=== PATIENT | female | born 1980 | race Two or more races ===

== ENCOUNTER 2022-12-14 14:41 | Outpatient (REF) | payer MEDICAID, OTHER, SELFPAY ==
--- NOTE | ~2022-12-14 | US_ITS ---
EXAMINATION: US SOFT TISSUE HEAD/NECK CLINICAL INFORMATION: Post thyroidectomy. Neck swelling. COMPARISON: None available. TECHNIQUE: Linear transducer grayscale and color Doppler examination of the submental/level 1A region and thyroid bed. FINDINGS: No residual thyroid tissue or nodule is seen in the thyroid bed. No submental/level 1A lymphadenopathy is seen. No solid or cystic soft tissue mass. No fluid collection. US/US soft tiss head and/or neck IMPRESSION: Post thyroidectomy. No residual thyroid tissue or nodule is seen. No submental /level 1 A lymphadenopathy.
== END 2022-12-14 14:42 | disposition home or self-care (01) ==
LOC: HO.US 14:41
PROVIDERS: PCP Nurse Practitioner Family; Visit Provider Nurse Practitioner Family
DX: E04.9 Nontoxic goiter, unspecified (principal)
CPT/HCPCS: 76536

== ENCOUNTER → 2023-02-21 08:52 | Outpatient (BNVA) | payer MEDICAID, OTHER, SELFPAY | PROVIDERS: PCP Nurse Practitioner Family; Visit Provider Physician Assistant ==

== ENCOUNTER 2023-03-25 16:03 | Outpatient (REF) | payer MEDICAID, OTHER, SELFPAY ==
[2023-03-25 18:20] LABS: TSH reflex Free T4 1.04 uIU/mL (0.32-4.0)
== END 2023-03-25 16:04 | disposition home or self-care (01) ==
LOC: HO.HHCL 16:03
PROVIDERS: Visit Provider Nurse Practitioner Family
DX: E03.9 Hypothyroidism, unspecified (principal)
CPT/HCPCS: 36415; 84443; 87086

== ENCOUNTER 2023-03-31 14:48 | Outpatient (REF) | payer MEDICAID, OTHER, SELFPAY ==
--- NOTE | ~2023-03-31 | US_ITS ---
EXAMINATION: US PELVIS CLINICAL INFORMATION: Pelvic pain, unknown last menstrual period. Hysterectomy and oophorectomy. COMPARISON: None available. TECHNIQUE: Ultrasound of the pelvis is performed using both transabdominal and transvaginal transducers along with Doppler. Transvaginal imaging is performed due to inadequate visualization transabdominally. FINDINGS: The uterus is surgically absent. The left ovary is surgically absent. Limited visualization due to bowel gas. Right ovary measures 3.7 x 2.2 x 3.0 cm, volume 12.8 mL. Right ovarian 1.6 x 1.0 x 1.5 cm cyst appears simple, likely physiologic. Left adnexal fluid collection measuring approximately 1.7 x 1.3 x 1.9 cm. Differential considerations for left adnexal fluid collection include hydrosalpinx, pelvic cyst, free fluid or ovarian cyst, although no discrete ovarian tissue is identified and left ovary is surgically removed per patient. US/US pelvic and transvaginal IMPRESSION: Left adnexal fluid collection measuring approximately 1.7 x 1.3 x 1.9 cm. Differential considerations for left adnexal fluid collection fluid include hydrosalpinx, pelvic cyst, free fluid or ovarian cyst, although no discrete ovarian tissue is identified and left ovary is surgically removed per patient. Gynecologic consultation and correlation with clinical exam recommended to determine further management. Unremarkable right ovary. Uterus is surgically absent.
== END 2023-03-31 14:49 | disposition home or self-care (01) ==
LOC: HO.US 14:48
PROVIDERS: PCP Nurse Practitioner Family; Visit Provider Nurse Practitioner Family
DX: R10.2 Pelvic and perineal pain (principal)
CPT/HCPCS: 76830; 76856

== ENCOUNTER 2023-05-25 15:12 | Outpatient (REF) | payer MEDICAID, OTHER, SELFPAY ==
[2023-05-26 16:05] LABS: Creatinine Urine 270.51 mg/dL
[2023-05-26 16:34] LABS: Microalbum/Creatinine Ratio Ur 254.7 ug/mg cr (<30)
== END 2023-05-25 15:13 | disposition home or self-care (01) ==
LOC: HO.HHCLNP 15:12
PROVIDERS: Visit Provider Nurse Practitioner Primary Care
DX: R30.0 Dysuria (principal); R80.9 Proteinuria, unspecified; I10 Essential (primary) hypertension
CPT/HCPCS: 82043; 82570; 87086; 87088; 87186

== ENCOUNTER 2023-05-26 15:06 | Outpatient (REF) | payer MEDICAID, OTHER, SELFPAY | END 2023-05-26 15:07 | disposition home or self-care (01) | LOC: HO.HHCLNP 15:06 | PROVIDERS: Visit Provider Nurse Practitioner Primary Care | DX: Z13.89 Encounter for screening for other disorder (principal) ==

== ENCOUNTER 2023-05-26 15:10 | Outpatient (REF) | payer MEDICAID, OTHER, SELFPAY | END 2023-05-26 15:11 | disposition home or self-care (01) | LOC: HO.HHCLNP 15:10 | PROVIDERS: Visit Provider Nurse Practitioner Primary Care | DX: Z13.89 Encounter for screening for other disorder (principal) ==

== ENCOUNTER 2023-06-09 13:46 | Outpatient (REF) | payer MEDICAID, OTHER, SELFPAY ==
--- NOTE | ~2023-06-09 | US_ITS ---
EXAMINATION: US RETROPERITONEAL LIMITED (RENAL ONLY) CLINICAL INFORMATION: Albuminuria, hematuria. COMPARISON: None available. TECHNIQUE: Real-time imaging of the kidneys. FINDINGS: RIGHT KIDNEY: 12.6 x 5.5 x 6.3 cm (SAG x AP x TRV). The kidney is normal in size, contour, and echogenicity. Renal cortical thickness is normal. No calculi or focal parenchymal lesions. No hydronephrosis. LEFT KIDNEY: 10.8 x 6.5 x 4.8 cm (SAG x AP x TRV). The kidney is normal in size, contour, and echogenicity. Renal cortical thickness is normal. No focal parenchymal lesions or hydronephrosis. At the upper pole, a 4 mm nonobstructing calculus is seen, with twinkle artifact. US/US renal BI IMPRESSION: A 4 mm nonobstructing left renal calculus is seen. No right renal calculus is seen. No hydronephrosis is noted bilaterally.
== END 2023-06-09 13:47 | disposition home or self-care (01) ==
LOC: HO.US 13:46
PROVIDERS: PCP Nurse Practitioner Family; Visit Provider Nurse Practitioner Primary Care
DX: R80.9 Proteinuria, unspecified (principal); R31.9 Hematuria, unspecified
CPT/HCPCS: 76775

== ENCOUNTER 2023-10-18 12:30 | Outpatient (REF) | payer MEDICAID, OTHER, SELFPAY ==
[2023-10-18 13:20] LABS: MANUAL DIFF FLAG NO
[2023-10-18 13:35] LABS: Basophils Percent Auto 0.5 % (0-2); Eosinophils Absolute Auto 0.1 X10*3/uL (0.0-0.4); Eosinophils Percent Auto 1.2 % (0-4); Hemoglobin 12.7 g/dl (12.0-16.0); Imm Gran Abs Auto 0.03 X10*3/uL (0.00-0.03); Imm Gran Pct Auto 0.4 % (0.0-0.4); Lymphocytes Absolute Auto 3.4 X10*3/uL (1.2-4.9); Lymphocytes Percent Auto 40.7 % (20-40); Mean Corpuscular HGB Conc 31.8 g/dl (31.0-35.0); Mean Corpuscular Hemoglobin 26.8 pg (27.0-33.0); Mean Corpuscular Volume 84.6 fL (80.0-98.0); Mean Platelet Volume 10.8 fL (9.4-12.3); Monocytes Absolute Auto 0.6 X10*3/uL (0.1-1.2); Monocytes Percent Auto 6.9 % (2-11); Neutrophils Absolute Auto 4.2 x10*3/uL (2.0-8.3); Neutrophils Percent Auto 50.3 % (45-73); Platelet Count 293 X10*3/uL (160-400); Red Blood Count 4.73 X10*6/uL (4.20-5.50); Red Cell Distribution Width 14.4 % (11.0-16.0); White Blood Count 8.3 X10*3/uL (4.8-10.8)
[2023-10-18 14:04] LABS: Estimated Average Glucose 108 mg/dL; Hemoglobin A1c % 5.4 % (<6.0)
[2023-10-18 14:05] LABS: Creatinine Urine 271.85 mg/dL; Microalbum/Creatinine Ratio Ur 8.8 ug/mg cr (<30)
[2023-10-18 15:59] LABS: Alanine Aminotransferase 22 U/L (0-31); Albumin Level 4.1 g/dL (3.5-5.0); Alkaline Phosphatase 69 U/L (39-117); Anion Gap 14 (12-20); Aspartate Amino Transferase 18 U/L (5-31); Bilirubin Total 0.4 mg/dL (0.0-1.0); Blood Urea Nitrogen 14 mg/dL (9-16); Calcium 9.3 mg/dL (8.4-10.2); Carbon Dioxide 23 mmol/L (22-29); Chloride 106 mmol/L (96-108); Cholesterol 225 mg/dL (<200); Estimated Glomerular Filt Rate > 60; Glucose Random 93 mg/dL (60-115); HDL Cholesterol 59 mg/dL (>40); LDL Cholesterol Calculated 135 mg/dL (<100); Potassium 4.1 mmol/L (3.3-5.1); Sodium 139 mmol/L (135-145); Total Protein 7.2 g/dL (6.5-8.0); Triglycerides 158 mg/dL (<150)
== END 2023-10-18 12:31 | disposition home or self-care (01) ==
LOC: HO.HHCL 12:30
PROVIDERS: Visit Provider Nurse Practitioner Family
DX: I10 Essential (primary) hypertension (principal); E66.2 Morbid (severe) obesity with alveolar hypoventilation
CPT/HCPCS: 36415; 80053; 80061; 82043; 82570; 83036; 85025

== ENCOUNTER 2024-01-10 12:20 | Outpatient (REF) | payer MEDICAID, OTHER, SELFPAY ==
[2024-01-12 21:28] LABS: C. trachomatis RNA TMA NOT DETECTED (NOT DETECTED); Candida glabrata RNA NOT DETECTED (NOT DETECTED); Candida species RNA NOT DETECTED (NOT DETECTED); N. gonorrhoeae RNA TMA NOT DETECTED (NOT DETECTED); Trichomonas vaginalis RNA NOT DETECTED (NOT DETECTED)
== END 2024-01-10 12:21 | disposition home or self-care (01) ==
LOC: HO.HHCLNP 12:20
PROVIDERS: Visit Provider Nurse Practitioner Family
DX: N76.0 Acute vaginitis (principal)
CPT/HCPCS: 36415; 81513; 87481; 87491; 87591; 87661

== ENCOUNTER 2024-04-02 10:42 | Outpatient (REF) | payer MEDICAID, OTHER, SELFPAY ==
[2024-04-02 12:07] LABS: TSH reflex Free T4 1.23 uIU/mL (0.32-4.0)
== END 2024-04-02 10:43 | disposition home or self-care (01) ==
LOC: HO.HHCL 10:42
PROVIDERS: Visit Provider Nurse Practitioner Family
DX: E03.9 Hypothyroidism, unspecified (principal)
CPT/HCPCS: 36415; 84443

== ENCOUNTER 2024-08-06 16:48 | Outpatient (REF) | payer MEDICAID, OTHER, SELFPAY ==
[2024-08-06 17:48] LABS: MANUAL DIFF FLAG NO
[2024-08-06 18:36] LABS: Basophils Percent Auto 0.5 % (0-2); Eosinophils Absolute Auto 0.1 X10*3/uL (0.0-0.4); Eosinophils Percent Auto 1.6 % (0-4); Hematocrit 39.4 % (37.0-47.0); Hemoglobin 12.6 g/dl (12.0-16.0); Imm Gran Abs Auto 0.02 X10*3/uL (0.00-0.03); Imm Gran Pct Auto 0.2 % (0.0-0.4); Lymphocytes Absolute Auto 2.7 X10*3/uL (1.2-4.9); Lymphocytes Percent Auto 30.8 % (20-40); Mean Corpuscular Hemoglobin 27.3 pg (27.0-33.0); Mean Corpuscular Volume 85.3 fL (80.0-98.0); Monocytes Absolute Auto 0.6 X10*3/uL (0.1-1.2); Monocytes Percent Auto 6.7 % (2-11); Neutrophils Absolute Auto 5.3 x10*3/uL (2.0-8.3); Neutrophils Percent Auto 60.2 % (45-73); Platelet Count 264 X10*3/uL (160-400); Red Blood Count 4.62 X10*6/uL (4.20-5.50); Red Cell Distribution Width 14.9 % (11.0-16.0); White Blood Count 8.8 X10*3/uL (4.8-10.8)
[2024-08-06 19:09] LABS: Alanine Aminotransferase 27 U/L (0-31); Albumin Level 3.8 g/dL (3.5-5.0); Alkaline Phosphatase 64 U/L (39-117); Anion Gap 12 (12-20); Aspartate Amino Transferase 19 U/L (5-31); Bilirubin Total 0.2 mg/dL (0.0-1.0); Blood Urea Nitrogen 16 mg/dL (9-16); C Reactive Protein 0.63 mg/dL (< or = 0.50); Calcium 8.9 mg/dL (8.4-10.2); Carbon Dioxide 24 mmol/L (22-29); Chloride 106 mmol/L (96-108); Estimated Glomerular Filt Rate > 60; Glucose Random 88 mg/dL (60-115); Potassium 3.6 mmol/L (3.3-5.1); Sodium 138 mmol/L (135-145); Total Protein 6.6 g/dL (6.5-8.0)
[2024-08-06 19:18] LABS: TSH reflex Free T4 0.91 uIU/mL (0.32-4.0)
[2024-08-06 19:24] LABS: Erythrocyte Sedimentation Rate 9 MM/HR (0-20)
[2024-08-07 07:17] LABS: Estimated Average Glucose 117 mg/dL; Hemoglobin A1c % 5.7 % (<6.0)
== END 2024-08-06 16:49 | disposition home or self-care (01) ==
LOC: HO.HHCL 16:48
PROVIDERS: Visit Provider Nurse Practitioner Family
DX: E66.01 Morbid (severe) obesity due to excess calories (principal); M25.50 Pain in unspecified joint
CPT/HCPCS: 36415; 80053; 83036; 84443; 85025; 85652; 86140

== ENCOUNTER → 2024-09-17 16:30 | Outpatient (BNV) | payer MEDICAID, SELFPAY | PROVIDERS: PCP Nurse Practitioner Family; Visit Provider Internal Medicine | DX: Z12.31 Encounter for screening mammogram for malignant neoplasm of breast (principal) | CPT/HCPCS: 77063; 77067 ==

== ENCOUNTER 2024-09-17 16:35 | Outpatient (REF) | payer MEDICAID, OTHER, SELFPAY ==
--- NOTE | ~2024-09-17 | MM_ITS ---
EXAMINATION: MM SCREENING DIGITAL BREAST TOMOSYNTHESIS, BILATERAL CLINICAL INFORMATION: Screening. Asymptomatic. COMPARISON: Mammography: Baseline. TECHNIQUE: Digital breast mammography with tomosynthesis is performed in both the craniocaudal and mediolateral oblique views along with computer-aided detection (CAD). FINDINGS: The breasts are heterogeneously dense, which may obscure small masses (ACR BI-RADS breast composition Category c). There are no significant masses, abnormal calcifications, or other abnormalities. MM/MM tomosynthesis screening BI IMPRESSION: No mammographic evidence of malignancy. ASSESSMENT: BI-RADS BI-RADS 1 - Negative RECOMMENDATION: Routine annual mammography screening. 1 year F/U This examination should not preclude the clinical evaluation of a suspicious palpable abnormality. This patient's information was entered into a reminder system with a target due date for their next mammogram. Electronically signed by: Andreia Paz DO 09/23/2024 06:05 PM EDGARDO
== END 2024-09-17 16:36 | disposition home or self-care (01) ==
LOC: HO.MAMMO 16:35
PROVIDERS: PCP Nurse Practitioner Family; Visit Provider Nurse Practitioner Family
DX: Z12.31 Encounter for screening mammogram for malignant neoplasm of breast (principal)
CPT/HCPCS: 77063; 77067

== ENCOUNTER 2024-10-23 15:14 | Outpatient (REF) | payer MEDICAID, OTHER, SELFPAY ==
--- OUTSIDE RECORDS SUMMARY | 2024-10-23 16:01 | XMS_ITS | Encounter Summary ---
Author Organization [employer] Address [address] [facility] [address] [place] [address] Care Team Providers Care Gum Rolling Machine Operator Name Role Phone Maya Whiteside NP Primary Care Provider [phone] Reason for Visit * Reason Onset Date Comments Nurse Triage 08/29/2024 Encounter Details Date Type Department Care Team ([facility] st Contact Info) Description 08/29/2024 Telephone [facility] MEDICINE [address] [place], [place] [phone] Maya Whiteside NP [address] [place] [address] Nurse Triage Social History Tobacco Use Types Packs/Day Years Used Date Smoking Tobacco: Never Passive Smoke Exposure: Never Smokeless Tobacco: Never Alcohol Use Standard Drinks/Week Comments Not Currently 0 (1 standard drink = 0.6 oz pur e alcohol) socially Depression Answer Date Recorded Patient Health Questionnaire-9 Score 1 08/06/2024 Patient Health Questionnaire-9 Score 1 08/06/2024 Last PHQ-9: Questionnaire Data Not on file 1 10/06/2023 Housing Stability Answer Date Recorded What is your housing situation today? I have edgar martinez 03/07/[address] you li ve. Do you have problems with any of the following? None of the above 03/07/2024 Food Insecurity Answer Date Recorded Within the past 12 months, y ou worried that your food would run out before you got money to buy more: Never True 03/07/2024 Within the past 12 months,th e food you bought just didn't last and you didn't have enough money to get more: Never True Transportation Answer Date Recorded In the past 12 months, has l ack of transportation kept you from medical appts, meetings, work or from getting things needed for daily living? No 03/07/2024 Utilities Answer Date Recorded In the past 12 months, has t he electric, gas, oil or water company threatened to shut off services in your home? No 03/07/2024 Depression Answer Date Recorded Patient Health Questionnaire-2 Score 0 08/06/2024 Internet Access Answer Date Recorded Internet Access Q1 Yes 05/11/2024 Internet Access Q2 Not on file 05/11/2024 Comments Unknown Sex and Gender Information Value Date Recorded Sex Assigned at Female 07/12/2022 10:40 AM EDT Legal Sex Female 10:40 AM EDT Gender Identity Female 07/12/2022 10:40 AM EDT Sexual Orientation Choose not to disclose 2021 10:40 AM EDT documented as of this encounter Miscellaneous Notes * Telephone Encounter - Adelia Morocho RN - 08/29/2024 2:18 PM EST Triage call with [facility] [place] [id number]. Pt reports increased anxiety since difficulty with son occurred several months ago. Pt reports that situation is resolved but, since that time Pt has had a degree of anxiety. Pt reports feeling nervous like I drank an energy drink . Pt is menopausal and is using estrace vag cream as prescribed. Pt had been prescribed hydroxyzine 25mg but, has never used it. Pt reports not wanting to rely on medication. Pt reports no increased stress or othertrigger for this anxiety. Pt is able to go about daily activities. Pt reports sometimes along with nervousness Pt feels an increased heart rate. ASK apt with PCP 09/10/24 @ 330pm scheduled . Pt agrees with disposition. Home care is reviewed. Advised when feels anxious to go for a walk, read a book,listen to music but, try to do an activity which Pt likes to change the thoughts. Pt agrees to try this. Insurance is verified as active prior to booking. Protocol Used: Anxiety and Panic Attack (Adult) Protocol-Based Disposition: See in Office or Video Visit within 2 Weeks Video visit not offered Positive Triage Question: * Symptoms of anxiety or panic attack and is a chronic symptom (recurrent or ongoing AND present > 4 weeks) * All higher-acuity triage questions were negative Care Advice Discussed: * Note to Triager - Anxiety Symptoms * Reassurance and Education - Anxiety * Anxiety - Healthy Lifestyle Tips * Avoid Caffeine * Stress Reduction * Reasons To Call Back - Anxiety or panic attacks continue - You feel like harming yourself - You become worse * Telephone Encounter - Cruzito Carranza - 08/29/2024 12:48 PM EST Symptom: Anxiety or Panic Attack Outcome: Schedule an urgent appointment (within 4 hours) or talk to a nurse or provider soon Reason: Anxiety keeps from normal daily activities (such as school or work) Hungarian Speaker (Accepted General Production Manager) documented in this encounter Plan of Treatment Upcoming Encounters Date Type Department Care Team (Late st Contact Info) Description 11/19/2024 3:45 PM EDT Office Visit [facility] MED[facility]INE [address] [place] [address] Maya Whiteside NP [address] [place] [address] documented as of this encounter Visit Diagnoses Not on filedocumented in this encounter Additional Health Concerns Assessment Noted Time PHQ-9 Depression Total Score: 1 08/06/20 24 3:56 PM EST documented as of this encounter Care Teams Gum Rolling Machine Operator Relationship Specialty Start Date End Date Maya Whiteside NP [address] [place] [address] PCP - General Family Medicine 05/11/24 documented as of this encounter
--- OUTSIDE RECORDS SUMMARY | 2024-10-23 16:01 | XMS_ITS | Encounter Summary ---
Author Organization [employer] [facility] Address [address] [facility] 7t [place] [address] Care Team Providers Care Grading Supervisor Name Role Phone Marianna HeP Primary Care Provider [phone] Maya Whiteside NP Primary Care Provider Reason for Visit * Reason Comments Med Refill Encounter Details Date Type Department Care Team ([facility] st Contact Info) Description 03/08/2023 Refill [facility] MEDICINE [address] [place] [address] Marianna He FNP [address] [place] [address] Social History Tobacco Use Types Packs/Day Years Used Date Smoking Tobacco: Never Passive Smoke Exposure: Never Smokeless Tobacco: Never Alcohol Use Standard Drinks/Week Comments Not Currently 0 (1 standard drink = 0.6 oz pur e alcohol) Depression Answer Date Recorded Patient Health Questionnaire-9 Score 8 12/01/2022 Depression Answer Date Recorded Patient Health Questionnaire-2 Score 2 12/01/2022 Comments Unknown Sex and Gender Information Value Date Recorded Sex Assigned at Female 07/12/2022 10:40 AM EDT Legal Sex Female 10:40 AM EDT Gender Identity Female 07/12/2022 10:40 AM EDT Sexual Orientation Choose not to disclose 2021 10:40 AM EDT COVID-19 Exposure Response Date Recorded In the last 10 days, have yo u been in contact with someone who was confirmed or suspected to have Coronavirus/COVID-19? No / Unsure 02/16/2023 3:30 PM EDT documented as of this encounter Plan of Treatment Upcoming Encounters Date Type Department Care Team (Late st Contact Info) Description 11/19/2024 3:45 PM EDT Office Visit [facility] MEDICINE [address] [place] [address] Maya Whiteside NP [address] [place] [address] documented as of this encounter Visit Diagnoses Not on filedocumented in this encounter Additional Health Concerns Assessment Noted Time PHQ-9 Depression Total Score: 8 12/02/19 23 2:51 PM EDT documented as of this encounter Care Teams Grading Supervisor Relationship Specialty Start Date End Date Marianna He FNP [address] [place] [address] PCP - General Family Medicine 12/01/22 05/10/24 Maya Whiteside NP [address] [place] [address] PCP - General Family Medicine 05/11/24 documented as of this encounter
--- OUTSIDE RECORDS SUMMARY | 2024-10-23 16:01 | XMS_ITS | Encounter Summary ---
Author Organization [employer] Address [address] [facility] 7[address] [place] [address] Care Team Providers Care Automotive Buyer Name Role Phone Marianna HeP Primary Care Provider [phone] Maya Whiteside NP Primary Care Provider Reason for Visit * Reason Onset Date Comments Medication Question 10/21/2023 Encounter Details Date Type Department Care Team (Late st Contact Info) Description 10/21/2023 Telephone [facility] MEDICINE [address] [place], [place] [phone] Marianna He FNP [address] [place], [place] [phone] Medication Question Social History Tobacco Use Types Packs/Day Years [...] encounter Miscellaneous Notes * Telephone Encounter - Della Stearns RN - 10/21/2023 2:38 PM EST T/C to pt. Through [employer] interpreters to inform that if she feels light headed or dizzy to reduceose, also advised to take BP at home and keeping next apt. Pt. Verbally agreed and understood. * Telephone Encounter - Della Stearns RN - 10/21/2023 11:47 AM EST T/C to pt. For below message, pt. States she recently started new increased dose of Lisinopril. Since she start new dose she felt dizziness and for that reason she stopped Lisinopril 30 mg and go back on Lisinopril 20 mg as discussed by provider. Pt. Does not has any symptoms right now, but feels tired right now. Last dose of Lisinopril 30 mg was taken on Tuesday. Pt. Was advised to go to nearest ED in case of any symptoms including CP, SOB or breathing problem.Pt. Advised that message will be sent to provider for review. Please review and advise. * Telephone Encounter - Annalise Nnamdi - 10/21/2023 10:49 AM EST Tc from pt requesting to speak to a nurse in regards to medication lisinopril 30 mg, states medication was increased however has some further questions and concerns also denied any currently symptoms. Please contact at [phone] Algerian documented in this encounter Plan of Treatment Upcoming Encounters Date Type Department Care Team (Late st Contact Info) Description 11/19/2024 3:45 PM EDT Office Visit [facility] MEDICINE [address] [place] [address] Maya Whiteside NP [address] [place] [address] documented as of this encounter Visit Diagnoses Not on filedocumented in this encounter Additional Health Concerns Assessment Noted Time PHQ-9 Depression Total Score: 8 12/02/19 23 2:51 PM EDT documented as of this encounter Care Teams Automotive Buyer Relationship Specialty Start Date End Date Marianna He FNP [address] [place] [address] PCP - General Family Medicine 12/01/22 05/10/24 Maya Whiteside NP [address] [place] [address] PCP - General Family Medicine 05/11/24 documented as of this encounter
--- OUTSIDE RECORDS SUMMARY | 2024-10-23 16:01 | XMS_ITS | Encounter Summary ---
Author Organization [employer] [facility] Address [address] [place] [address] 7t [place] [address] Care Team Providers Care Plaster Tender Name Role Phone Marianna He Primary Care Provider [phone] Maya Whiteside NP Primary Care Provider [phone] Encounter Details Date Type Department Care Team (Late st Contact Info) Description 04/11/2023 Orders Only [facility] MEDICINE [address] [place] [address] Marianna He FNP [address] [place] [address] Pelvic pain (Primary Dx) Social History Tobacco Use Types Packs/Day Years [...] AM EDT documented as of this encounter Plan of Treatment Upcoming Encounters Date Type Department Care Team (Late st Contact Info) Description 11/19/2024 3:45 PM EDT Office Visit [facility] MED[facility]INE [address] [place] [address] Maya Whiteside NP [address] [place] [address] documented as of this encounter Visit Diagnoses Diagnosis Pelvic pain- Primary documented in this encounter Additional Health Concerns Assessment Noted Time PHQ-9 Depression Total Score: 8 12/02/19 23 2:51 PM EDT documented as of this encounter Care Teams Plaster Tender Relationship Specialty Start Date End Date Marianna He FNP [address] [place] [address] PCP - General Family Medicine 12/01/22 05/10/24 Maya Whiteside NP [address] [place] [address] PCP - General Family Medicine 05/11/24 documented as of this encounter
--- OUTSIDE RECORDS SUMMARY | 2024-10-23 16:01 | XMS_ITS | Encounter Summary ---
Author Organization [employer] Address [address] [facility] 7t [place] [address] Care Team Providers Care Kinesiologist Name Role Phone Marianna HeP Primary Care Provider [phone] Maya Whiteside NP Primary Care Provider [phone] Reason for Visit * Reason Onset Date Comments Med Refill 11/24/2023 Encounter Details Date Type Department Care Team (Late st Contact Info) Description 11/24/2023 Telephone [facility] MEDICINE [address] [place], [place] [phone] Marianna He FNP [address] [place], [place] [phone] Med Refill Social History Tobacco Use Types Packs/Day Years Used Date Smoking Tobacco: Never Passive Smoke Exposure: Never Smokeless Tobacco: Never Alcohol Use Standard Drinks/Week Comments Not Currently 0 (1 standard drink = 0.6 oz pur e alcohol) Depression Answer Date Recorded Patient Health Questionnaire-9 Score 8 12/01/2022 Housing Stability Answer Date Recorded What is your housing situation today? I have edgar martinez 06/28/[address] you li ve. Do you have problems with any of the following? None of the above 06/28/2023 Food Insecurity Answer Date Recorded Within the past 12 months, y ou worried that your food would run out before you got money to buy more: Never True 06/28/2023 Within the past 12 months,th e food you bought just didn't last and you didn't have enough money to get more: Never True Transportation Answer Date Recorded In the past 12 months, has l ack of transportation kept you from medical appts, meetings, work or from getting things needed for daily living? No 06/28/2023 Utilities Answer Date Recorded In the past 12 months, has t he electric, gas, oil or water company threatened to shut off services in your home? No 06/28/2023 Depression Answer Date Recorded Patient Health Questionnaire-2 Score 2 12/01/2022 Comments Unknown Sex and Gender Information Value Date Recorded Sex Assigned at Female 07/12/2022 10:40 AM EDT Legal Sex Female 10:40 AM EDT Gender Identity Female 07/12/2022 10:40 AM EDT Sexual Orientation Choose not to disclose 2021 10:40 AM EDT documented as of this encounter Miscellaneous Notes * Telephone Encounter - Tonia Chacon LPN - 11/24/2023 1:08 PM EDT Lisinopril was sent to [facility] on 10/18/23 #90 with 1 refill other medication pended to PCP. * Telephone Encounter - Cruzito Carranza - 11/24/2023 12:35 PM EDT TC from pt requesting medication refill. Medications needing refill: levothyroxine (Synthroid, Levoxyl) 175 MCG tablet and lisinopril (Prinivil) 20 MG tablet To be sent to: [facility] documented in this encounter Plan of Treatment Upcoming Encounters Date Type Department Care Team (Late st Contact Info) Description 11/19/2024 3:45 PM EDT Office Visit [facility] MEDICINE [address] [place] [address] Maya Whiteside NP [address] [place] [address] documented as of this encounter Visit Diagnoses Not on filedocumented in this encounter Additional Health Concerns Assessment Noted Time PHQ-9 Depression Total Score: 8 12/02/19 23 2:51 PM EDT documented as of this encounter Care Teams Kinesiologist Relationship Specialty Start Date End Date Marianna He FNP [address] [place] [address] PCP - General Family Medicine 12/01/22 05/10/24 Maya Whiteside NP [address] [place] [address] PCP - General Family Medicine 05/11/24 documented as of this encounter
--- OUTSIDE RECORDS SUMMARY | 2024-10-23 16:01 | XMS_ITS | Encounter Summary ---
Author Organization [facility] [employer] [facility] [employer] Address [address] [facility] 7t [place] [address] Care Team Providers Care College Service Officer Name Role Phone Marianna HeP Primary Care Provider [phone] Maya Whiteside NP Primary Care Provider [phone] Reason for Visit * Reason Onset Date Comments Appointment Request 03/09/2023 Encounter Details Date Type Department Care Team ([facility] st Contact Info) Description 03/09/2023 Telephone [facility] MEDICINE [address] [place], [place] [phone] Marianna He FNP [address] [place], [place] [phone] Appointment Request Social History Tobacco Use Types Packs/Day Years [...] PM EDT documented as of this encounter Miscellaneous Notes * Telephone Encounter - Della Stearns RN - 03/10/2023 10:15 AM EDT T/C to [phone] through [employer] id - [id number] for below message. Pt. Is looking for follow up apt. To discuss aboutbariatric surgery. Pt. Schedule follow up apt. With PCP on 03/25/2023. Pt. Verbally agreed and understood. * Telephone Encounter - Annalise Coto - 03/09/2023 12:03 PM EDT Tc from pt requesting to have a office visit with PCP to bariatric surgery , states has some further questions and concerns. Pt is currently going to [facility] weight management. Please contact at [phone] Uzbek documented in this encounter Plan of Treatment Upcoming Encounters Date Type Department Care Team (Late st Contact Info) Description 11/19/2024 3:45 PM EDT Office Visit [facility] MEDICINE [address] [place] [address] Maya Whiteside NP [address] [place] [address] documented as of this encounter Visit Diagnoses Not on filedocumented in this encounter Additional Health Concerns Assessment Noted Time PHQ-9 Depression Total Score: 8 12/02/19 23 2:51 PM EDT documented as of this encounter Care Teams College Service Officer Relationship Specialty Start Date End Date Marianna He FNP [address] [place] [address] PCP - General Family Medicine 12/01/22 05/10/24 Maya Whiteside NP [address] [place] [address] PCP - General Family Medicine 05/11/24 documented as of this encounter
--- OUTSIDE RECORDS SUMMARY | 2024-10-23 16:01 | XMS_ITS | Encounter Summary ---
Author Organization [employer] [facility] Address [address] [facility] 7t [place] [address] Care Team Providers Care Load Dispatcher Local Name Role Phone YingMarianna BROOCH MAKER NOVELTY Primary Care Provider [phone] Maya Whiteside NP Primary Care Provider [phone] Encounter Details Date Type Department Care Team (Late st Contact Info) Description 02/15/2023 Orders Only [facility] MEDICINE [address] [place], [place] [phone] Estephania Baxter MD [address] [place], [place] [phone] Acquired hypothyroidism (Primary Dx) Social History Tobacco Use Types [...] Description 11/19/2024 3:45 PM EDT Office Visit [facility] MEDICINE [address] [place] [address] Maya Whiteside NP [address] [place] [address] documented as of this encounter Visit Diagnoses Diagnosis Acquired hypothyroidism- Primary Unspecified hypothyroidism documented in this encounter Additional Health Concerns Assessment Noted Time PHQ-9 Depression Total Score: 8 12/02/19 23 2:51 PM EDT documented as of this encounter Care Teams Load Dispatcher Local Relationship Specialty Start Date End Date Marianna He FNP [address] [place] [address] PCP - General Family Medicine 12/01/22 05/10/24 Maya Whiteside NP [address] [place] [address] PCP - General Family Medicine 05/11/24 documented as of this encounter
--- OUTSIDE RECORDS SUMMARY | 2024-10-23 16:01 | XMS_ITS | Encounter Summary ---
Author Organization [facility] Address [address] [facility] 7t [place] [address] Care Team Providers Care Stainless Steel Finisher Name Role Phone Ying Marianna FNP Primary Care Provider [phone] Maya Whiteside NP Primary Care Provider [phone] Encounter Details Date Type Department Care Team (Late st Contact Info) Description 10/26/2022 Orders Only [facility] [address] [place] [address] [phone] Lynn Gaxiola FNP Acquired hypothyroidism Social History Tobacco Use Types Packs/Day Years Used Date Smoking Tobacco: Never Passive Smoke Exposure: Never Smokeless Tobacco: Never Comments Unknown Sex and Gender Information Value [...] suspected to have Coronavirus/COVID-19? No / Unsure 10/20/2022 5:48 PM EST documented as of this encounter Plan of Treatment Upcoming Encounters Date Type Department Care Team (Late st Contact Info) Description 11/19/2024 3:45 PM EDT Office Visit [facility] [address] [place] [address] [phone] Maya Whiteside NP [address] [place], [place] [phone] documented as of this encounter Procedures Procedure Name Priority Date/Time Associated Diagnosis Comments TSH W/REFLEX TO FT4 Routine 11/29/2022 8:52 AM EDT Acquired hypothyroidism documented in this encounter Results * TSH W/Reflex to FT4 (11/29/2022 8:52 AM EDT) TSH w/Reflex to FT4 3.96 mIU/L [employer] [facility] Comment: ?Reference Range ?> or = 20 Years ??0.40-4.50 ? Ranges ?First trimester ?0.26-2.66 ?Second trimester ?? 0.55-2.73 ?Third trimester ?0.43-2.91 11/29/2022 8:52 AM EDT 11/29/2022 8:52 AM EDT [facility] - 11/29/2022 8:54 PM EDT FASTING:UNKNOWN FASTING: UNKNOWN us [facility] BLOOD ORDERABLES Final Res ult [facility] [address], [place] [address] [facility] [address] [place] [address] documented in this encounter Visit Diagnoses Diagnosis Acquired hypothyroidism Unspecified hypothyroidism documented in this encounter Care Teams Stainless Steel Finisher Relationship Specialty Start Date End Date Marianna He FNP [address] [place] [address] PCP - General Family Medicine 12/01/22 05/10/24 Maya Whiteside NP [address] [place] [address] PCP - General Family Medicine 05/11/24 documented as of this encounter
--- OUTSIDE RECORDS SUMMARY | 2024-10-23 16:01 | XMS_ITS | Encounter Summary ---
Author Organization [employer] Address [address] [facility] 7t [place] [address] Care Team Providers Care Neon Pumper Name Role Phone Stevo Maya BEATRIZ Primary Care Provider [phone] Encounter Details Date Type Department Care Team (Latest Contact Info) Description 10/10/2024 Travel Social History Tobacco Use Types Packs/Day Years [...] Description 11/19/2024 3:45 PM EDT Office Visit [facility] [address] [place] [address] Maya Whiteside NP [address] [place] [address] documented as of this encounter Visit Diagnoses Not on filedocumented in this encounter Additional Health Concerns Assessment Noted Time PHQ-9 Depression Total Score: 1 08/06/20 24 3:56 PM EST documented as of this encounter Care Teams Neon Pumper Relationship Specialty Start Date End Date Maya Whiteside NP [address] [place] [address] PCP - General Family Medicine 05/11/24 documented as of this encounter
--- OUTSIDE RECORDS SUMMARY | 2024-10-23 16:01 | XMS_ITS | Encounter Summary ---
Author Organization [employer] [facility] Address [address] [facility] 7t [place] [address] Care Team Providers Care Transmission System Operator Name Role Phone Marianna HeP Primary Care Provider [phone] Maya Whiteside NP Primary Care Provider [phone] Encounter Details Date Type Department Care Team (Late st Contact Info) Description 12/24/[address] [facility] [address] [place], [place] [phone] Marianna He FNP [address] [place] [address] Social History Tobacco Use Types Packs/Day Years [...] suspected to have Coronavirus/COVID-19? No / Unsure 12/20/2022 10:48 AM EDT documented as of this encounter Plan of Treatment Upcoming Encounters Date Type Department Care Team (Late st Contact Info) Description 11/19/2024 3:45 PM EDT Office Visit [facility] [address] [place] [address] Maya Whiteside NP [address] [place] [address] documented as of this encounter Visit Diagnoses Not on filedocumented in this encounter Additional Health Concerns Assessment Noted Time PHQ-9 Depression Total Score: 8 12/02/19 23 2:51 PM EDT documented as of this encounter Care Teams Transmission System Operator Relationship Specialty Start Date End Date Marianna He FNP [address] [place] [address] PCP - General Family Medicine 12/01/22 05/10/24 Maya Whiteside NP [address] [place] [address] PCP - General Family Medicine 05/11/24 documented as of this encounter
--- OUTSIDE RECORDS SUMMARY | 2024-10-23 16:01 | XMS_ITS | Encounter Summary ---
Author Organization [employer] Address [address] [facility] [address] [place] [address] Care Team Providers Care Cleaning Custodian Name Role Phone Marianna HeP Primary Care Provider [phone] Maya Whiteside NP Primary Care Provider [phone] Reason for Visit * Reason Onset Date Comments Nurse Triage 05/25/2023 Encounter Details Date Type Department Care Team (Late st Contact Info) Description 05/25/2023 Telephone [facility] [address] [place], [place] [phone] Marianna He FNP [address] [place], [place] [phone] Nurse Triage Social History Tobacco Use Types [...] Telephone Encounter - Adelia Morocho RN - 05/25/2023 11:45 AM EDT Triage call with [employer] ID [id number] Pt reports pelvic pain which has become more constant. Pt denies vag discharge reports a dryness .Pt has had hysterectomy in past with remaining ovaries. Pt reports cysts on left ovary. Neg for fever. Pt reports burning/pain with urination and frequency. Possible UTI present. Advised Pt to come to [facility] to be seen and Pt agrees with disposition . Protocol Used: Pelvic Pain - Female (Adult) Protocol-Based Disposition: See in Office or Video Visit Today or Tomorrow Positive Triage Question: * Patient wants to be seen * All higher-acuity triage questions were negative Care Advice Discussed: * Reassurance and Education - Mild to Moderate Pain Lasting Less Than 2 Hours * Rest * Pass a Stool * Use Heat * Pain Medicines * Pain Medicines - Extra Notes and Warnings * Expected Course * Reasons To Call Back - Severe pain lasts over 1 hour - Constant pain lasts over 2 hours - Intermittent pain (e.g., comes and goes, cramps) lasts over 48 hours - You become worse * Telephone Encounter - Annalise Coto - 05/25/2023 10:44 AM EDT Symptom: Abdominal Pain - Female - Not Outcome: Talk to a nurse or provider within 15 minutes Reason: Severe pain now, Pelvic pain, vaginal symptoms. The caller accepted this outcome Please contact at [phone] Ukrainian documented in this encounter Plan of Treatment Upcoming Encounters Date Type Department Care Team (Late st Contact Info) Description 11/19/2024 3:45 PM EDT Office Visit [facility] [address] [place] [address] Maya Whiteside NP [address] [place] [address] documented as of this encounter Visit Diagnoses Not on filedocumented in this encounter Additional Health Concerns Assessment Noted Time PHQ-9 Depression Total Score: 8 12/02/19 23 2:51 PM EDT documented as of this encounter Care Teams Cleaning Custodian Relationship Specialty Start Date End Date Marianna He FNP [address] [place] [address] PCP - General Family Medicine 12/01/22 05/10/24 Maya Whiteside NP [address] [place] [address] PCP - General Family Medicine 05/11/24 documented as of this encounter
--- OUTSIDE RECORDS SUMMARY | 2024-10-23 16:01 | XMS_ITS | Encounter Summary ---
Author Organization [employer] Address [address] [facility] [address] [place] [address] Care Team Providers Care Sales Technician Home Theater Name Role Phone Maya Whiteside NP Primary Care Provider [phone] Reason for Visit * Reason Comments Med Refill Encounter Details Date Type Department Care Team (Late st Contact Info) Description 10/14/2024 Refill [facility] [address] [place], [place] [phone] Marianna He FNP [address] [place] [address] Anxiety Social History Tobacco Use Types Packs/Day Years [...] Description 11/19/2024 3:45 PM EDT Office Visit [facility] [address] [place] [address] Maya Whiteside NP [address] [place] [address] documented as of this encounter Visit Diagnoses Diagnosis Anxiety Anxiety state, unspecified documented in this encounter Additional Health Concerns Assessment Noted Time PHQ-9 Depression Total Score: 1 08/06/20 24 3:56 PM EST documented as of this encounter Care Teams Sales Technician Home Theater Relationship Specialty Start Date End Date Maya Whiteside NP [address] [place] [address] PCP - General Family Medicine 05/11/24 documented as of this encounter
--- OUTSIDE RECORDS SUMMARY | 2024-10-23 16:01 | XMS_ITS | Encounter Summary ---
Author Organization [employer] Address [address] [facility] 7t [place] [address] Care Team Providers Care Clinical Nursing Coordinator Name Role Phone Stevo Maya BEATRIZ Primary Care Provider [phone] Encounter Details Date Type Department Care Team (Latest Contact Info) Description 10/23/2024 Travel Social History Tobacco Use Types Packs/Day [...] 3:45 PM EDT Office Visit [facility] [address] [place] [address] Maya Whiteside NP [address] [place] [address] documented as of this encounter Visit Diagnoses Not on filedocumented in this encounter Additional Health Concerns Assessment Noted Time PHQ-9 Depression Total Score: 1 08/06/20 24 3:56 PM EST documented as of this encounter Care Teams Clinical Nursing Coordinator Relationship Specialty Start Date End Date Maya Whiteside NP [address] [place] [address] PCP - General Family Medicine 05/11/24 documented as of this encounter
--- OUTSIDE RECORDS SUMMARY | 2024-10-23 16:01 | XMS_ITS | Clinical Summary ---
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 1 kit 12/02/19 23 Active Blood Pressure Monitoring (Omron 3 Series BP Monitor) device USE TO CHECK BLOOD PRESSURE TWICE DAILY DIRECTED 12/02/19 23 Active hydrOXYzine pamoate (Vistaril) 25 MG capsule Take 1 capsule (25 mg) by mouth if needed at bedtime for itching or anxiety for up to 10 days. 30 capsule 05/17/20 23 Active estradiol (Estrace) 0.1 MG/GM vaginal cream INSERT 1/2 GRAM VAGINALLY EVERY MORNING DIRECTED 42.5 g 07/05/20 23 Active lisinopril (Prinivil) 20 MG tablet Take 1 tablet (20 mg) by mouth in the morning. 90 tablet 3 12/05/19 24 025 Active D3 Super Strength 50 MCG (1999 UT) capsule TAKE 1 CAPSULE BY MOUTH EVERY MORNING 90 capsule 2 01/09/20 24 Active hydrocortisone 2.5 % cream Apply pea sized amount to skin bid for 1 week 15 g 01/10/20 24 Active omega-3 acid ethyl esters (Lovaza) 1 g capsule Take 1 capsule (1 g) by mouth in the morning. 90 capsule 1 06/09/20 24 Active levothyroxine (Synthroid, Levoxyl) 175 MCG tabletIndications :Acquired hypothyroidism Take 1 tablet (175 mcg) by mouth before breakfast. 90 tablet 1 06/09/20 24 Active fluticasone (Flonase) 50 MCG/ACT nasal spray INSTILL 2 SPRAYS IN EACH NOSTRIL ONCE DAILY 48 g 09/21/19 25 Active omeprazole (PriLOSEC) [address] capsule TAKE 1 CAPSULE BY MOUTH TWICE DAILY IN THE MORNING AND IN THE EVENING BEFORE MEALS. DO NOT BREAK, CRUSH, DISSOLVE OR CHEW. 180 capsule 09/21/19 25 Active escitalopram (Lexapro) 10 MG tabletIndications :Anxiety TAKE 1 TABLET BY MOUTH EVERY DAY 30 tablet 2 10/15/19 25 Active escitalopram (Lexapro) 10 MG tabletIndications :Anxiety Take 1 tablet (10 mg) by mouth Once per day. 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 10/18/2023 Encounter for health-related screening 4 Hypersomnia 10/18/2023 Assessment & Plan (09/01/2024 2:56 PM EST): Suspect sleep apnea, referral to sleep medicine Assessment & Plan (10/18/2023 2:21 PM EST): Bed partners witnesses possible apneac spells Referral to sleep medicine Palpitations 02/11/2023 Assessment & Plan (02/11/2023 1:49 PM EDT): I will repeat her blood work including CBC and TSH (last time uncontrolled) Primary hypertension 02/11/2023 Assessment & Plan (10/18/2023 2:21 PM EST): Recent ua with microlabuminunria repeat today Reviewed options of titrating up medication slightly or continuing home monitoring Pt prefers to titrate lisinopril to 30 mg Aware to return to 20 mg if develops s/s of hypotension Labs ordered Follow up in 2-4 weeks to review lab results and dosing adjustment Assessment & Plan (02/11/2023 1:51 PM EDT): I discontinue amlodipine and put her on lisinopril 10mg daily Low Na diet Weight reduction was advise Log BP and f/u with PCP If BP >170/100 seek medical attention NARCISA if dizziness, nausea, chest pain, weakness, numbness, etc... seek medical attention NARCISA Elevated BP without diagnosis of hypertension Menopausal vaginal dryness 12/28/2022 Acquired hypothyroidism 10/20/2022 Assessment & Plan (10/18/2023 2:20 PM EST): Pt reports weight gain disproportionate to calories, denies additional endocrine symptoms (temperature intolerance) tsh ordered Fatigue 10/20/2022 Encounters Date Type Department Care Team Description 10/23/2024 Travel 10/14/2024 Refill [facility] [address] [place] [address] Marianna He FNP Anxiety 10/10/2024 Travel 09/21/2024 Refill [facility] [address] [place] [address] Marianna He FNP 09/18/2024 Telephone [facility] [address] [place] [address] Tami Yanes MA Recall 09/10/2024 Telephone [facility] [address] [place] [address] Maya Whiteside NP No Show 09/07/2024 Telephone [facility] [address] [place] [address] Charissa Oneil MA Chart Prep 08/29/2024 Telephone [facility] [address] [place] [address] Maya Whiteside NP Nurse Triage 08/23/2024 Telephone [facility] [address] [facility] [place] [address] Maya Whiteside NP Results 08/06/2024 3:15 PM EST Office Visit [facility] [address] [facility] [place] [address] Maya Whiteside NP Morbid obesity (CMS/HCC) (Primary Dx); Breast screening; Snoring; Multiple joint pain; Right foot pain; Encounter for immunization; Hypersomnia from Last 3 Months Immunizations Name Administration Dates Next Due Influenza, seasonal, injectable, preservative fr ee 08/06/2024 Moderna Covid-19 Vaccine 12+ 03/17/2021,02/17/20 21 Family History Medical History Relation Name Comments Hypertension Father Hypertension Mother Relation Name Status Comments Father Mother Social History Tobacco Use Types Packs/Day Years Used Date Smoking Tobacco: Never Passive Smoke Exposure: Never Smokeless Tobacco: Never Tobacco Cessation:Counseling Given: Not Answered Alcohol Use Standard Drinks/Week Comments Not Currently [...] not to disclose 2021 10:40 AM EDT Last Filed Vital Signs Vital Sign Reading Time Taken Comments Blood Pressure 139/75 08/06/2024 3:41 PM EST Pulse 88 08/06/2024 3:41 PM EST Temperature 37.3 ??C (99.2 ??F) 08/06/2024 3:41 PM ES T Respiratory Rate 22 08/06/2024 3:41 PM EST Oxygen Saturation 98% 08/06/2024 3:41 PM EST Inhaled Oxygen Concentration - - Weight 121 kg (266 lb 12.8 oz) 08/06/2024 3:41 P M EST Height 162.6 cm (5' 4 ) 08/06/2024 3:41 PM EST Body Mass Index 45.8 08/06/2024 3:41 PM EST Plan of Treatment Upcoming Encounters Date Type Department Care Team (Late st Contact Info) Description 11/19/2024 3:45 PM EDT Office Visit [facility] [address] [place] [address] Maya Whiteside, BEATRIZ [address] [place] [address] Health Maintenance Due Date Last Done Comments CT Colonography 1978 Colonoscopy 1978 FIT 1978 FOBT 1978 Sigmoidoscopy 1978 Family Planning (PISQ) 1993 DTaP/Tdap/Td Vaccines (1 - Tdap) 1997 Hepatitis B Vaccines (1 of 3 - 19+ 3-dose series) 1997 Pap Smear 1999 Cervical Cancer Screening 02/22/2008 HPV/Cotest 02/22/2008 COVID-19 Vaccine ( season) 2024 03/17/2021, 02/16/2021 SDOH Screening 03/07/2025 03/07/2024 Alcohol/Substance Use Screening 08/06/2025 08/06/2024 Depression Screening 08/06/2025 08/06/2024, 08/06/20 Diabetes: Hemoglobin A1C 08/06/2025 024, 10/18/2023, 12/01/2022, Additional history exists Tobacco Screening 08/06/2025 08/06/2024 Mammogram 09/17/2026 09/17/2024 Colorectal Cancer Screening 10/24/2026 FIT DNA/Cologuard 10/24/2026 10/24/2023 Zoster Vaccines (1 of 2) 02/22/2028 Lipid Panel 10/18/2028 10/18/2023, 11/11, 01/25/2022 RSV Patients and Patients Aged 60 years or older (1 - 1-dose 75+ series) 2053 HIV Screening Completed 12/01/2022, 01/25/2022 Hepatitis C Screening Completed 12/01/2022, 022 Influenza Vaccine Completed 08/06/2024 HIB Vaccines Aged Out No longer eligi ble based on patient's age to complete this topic HPV Vaccines Aged Out No longer eligi ble based on patient's age to complete this topic Hepatitis A Vaccines Aged Out No long er eligible based on patient's age to complete this topic IPV Vaccines Aged Out No longer eligi ble based on patient's age to complete this topic Meningococcal Vaccine Aged Out No lizandro dejon eligible based on patient's age to complete this topic Pneumococcal Vaccine: Pediatrics (0 to 5 Years) and At-Risk Patients (6 to 49) Years) Aged Out No longer eligible based on patient's age to complete this topic RSV under 20 months Aged Out No longe r eligible based on patient's age to complete this topic Rotavirus Vaccines Aged Out No longer eligible based on patient's age to complete this topic Procedures Procedure Name Priority Date/Time Associated Diagnosis Comments BI MAMMOGRAM SCREENING TOMOSYNTHESIS BILATERAL Routine 09/17/2024 4:38 PM EST Breast screening C-REACTIVE PROTEIN Routine 08/06/2024 4: 53 PM EST Multiple joint pain SED RATE BY MODIFIED WESTERGREN Routine 08/06/2024 4:53 PM EST Multiple joint pain TSH W/REFLEX TO FT4 Routine 08/06/2024 4 :53 PM EST Morbid obesity (CMS/HCC) CBC WITH AUTO DIFFERENTIAL Routine 08/06/2024 4:53 PM EST Morbid obesity (CMS/HCC) HEMOGLOBIN A1C Routine 08/06/2024 4:53 PM EST Morbid obesity (CMS/HCC) COMPREHENSIVE METABOLIC PANEL Routine 08/06/2024 4:53 PM EST Morbid obesity (CMS/HCC) LAB COLOGUARD?? COLON CANCER SCREEN Routine 10/24/2023 9:45 AM EST Encounter for health-related screening LIPID PANEL, STANDARD Routine 10/18/2023 12:33 PM EST Primary hypertension HEPATITIS PANEL, GENERAL Routine 12/01/2022 3:52 PM EDT Routine screening for STI (sexually transmitted infection) HIV 1 RNA, QN PCR W/RFL JOSE ANGEL (RTI,PI,INTEGRASE) Routine 12/01/2022 3:52 PM EDT Routine screening for STI (sexually transmitted infection) from Last 3 Months or Most Recently Relevant to Health Maintenance Results * BI Mammogram Screening Tomosynthesis Bilateral (09/17/2024 4:38 PM EST) Anatomical Region Laterality Modality Breast Bilateral Mammography 09/17/2024 4:38 PM EST Narrative 09/23/2024 6:08 PM EST ? [facility] ? [address] ?[place] [address] ? Mammography Report ? Signed ? Patient: Vanda Alonso,Mikki ?MR# ?? : [id number] ? : 1980 ?Acct:[id number] ? Age/Sex: 44 / F ?ADM Date: 01/06/25 ? Loc: HO.MAMMO ? Attending Dr: Maya Whiteside FIELD MECHANICAL METER TESTER ? Ordering Physician: Maya Whiteside FIELD MECHANICAL METER TESTER ?Results: 1Negati ?? ve ? Date of Service: 09/17/24 ?Follow Up: 1 Year From Orig ?? inal Mammogram ? Procedure(s): MM tomosynthesis screening BI ?? Accession Number(s): [id number] ? cc: Maya Whiteside FIELD MECHANICAL METER TESTER ? EXAMINATION: ?? MM SCREENING DIGITAL BREAST TOMOSYNTHESIS, BILATERAL ? CLINICAL INFORMATION: ? Screening. Asymptomatic. ? COMPARISON: ?? Mammography: Baseline. ? TECHNIQUE: ?? Digital breast mammography with tomosynthesis is performed in both the ?? craniocaudal and mediolateral oblique views along with computer-aided ?? detection (CAD). ? FINDINGS: ?? The breasts are heterogeneously dense, which may obscure small masses ?? (ACR BI-RADS breast composition Category c). ? There are no significant masses, abnormal calcifications, or other ?? abnormalities. ? MM/MM tomosynthesis screening BI ?? IMPRESSION: ?? No mammographic evidence of malignancy. ? ASSESSMENT: ? BI-RADS BI-RADS 1 - Negative ? RECOMMENDATION: ?? Routine annual mammography screening. ? 1 year F/U ? This examination should not preclude the clinical evaluation of a ?? suspicious palpable abnormality. ? This patient's information was entered into a reminder system with a ?? target due date for their next mammogram. ? Electronically signed by: ??Andreia Paz DO ??09/23/2024 06:05 PM EST ?? RP ? Dictated By: ?Andreia Paz DO ? Signed By: ?<Electronically signed by Andreia Paz, DO in OV> ? 09/23/241804 ? DD/ 1638 ? TD/TT: 09/17/24 1648 ? Steamer Blocker: ? Procedure Note Donflavioter, Image - 09/23/2024 [facility] [address] [place] [address] Mammography Report Signed Patient: Mikki ThomsonMR# : [id number] : 1980Acct:[id number] Age/Sex: 44 / FADM Date: 09/17/24 Loc: HO.MAMMO Attending Dr: Maya Whiteside FIELD MECHANICAL METER TESTER Ordering Physician: Maya Whiteside NPResults: 1Negati ve Date of Service: 09/17/24Follow Up: 1 Year From Orig ina Mammogram Procedure(s): MM tomosynthesis screening BI Accession Number(s): [id number] cc: Maya Whiteside FIELD MECHANICAL METER TESTER EXAMINATION: MM SCREENING DIGITAL BREAST TOMOSYNTHESIS, BILATERAL CLINICAL INFORMATION: Screening. Asymptomatic. COMPARISON: Mammography: Baseline. TECHNIQUE: Digital breast mammography with tomosynthesis is performed in both the craniocaudal and mediolateral oblique views along with computer-aided detection (CAD). FINDINGS: The breasts are heterogeneously dense, which may obscure small masses (ACR BI-RADS breast composition Category c). There are no significant masses, abnormal calcifications, or other abnormalities. MM/MM tomosynthesis screening BI IMPRESSION: No mammographic evidence of malignancy. ASSESSMENT: BI-RADS BI-RADS 1 - Negative RECOMMENDATION: Routine annual mammography screening. 1 year F/U This examination should not preclude the clinical evaluation of a suspicious palpable abnormality. This patient's information was entered into a reminder system with a target due date for their next mammogram. Electronically signed by: Andreia Paz DO 09/23/2024 06:05 PM EST Dictated By: Andreia Paz DO Signed By: <Electronically signed by Andreia Paz DO in OV> 09/23/24 1805 DD/ 1638 TD/TT: 09/17/24 1648 Steamer Blocker: Maya Whiteside NP IMG BI PROCEDURES Edited Result - Final * TSH W/Reflex to FT4 (08/06/2024 4:53 PM EST) TSH reflex Free T4 0.91 0.32 - 4.0 uIU/mL [facility] Blood Venous blood specimen / Unknown 08/06/2024 4:53 PM EST 08/06/2024 5:40 PM EST Maya Whiteside NP LAB BLOOD ORDERABLES Final Resul t [facility] [address] [place] [address] [phone] * CBC auto differential (08/06/2024 4:53 PM EST) White Blood Count 8.8 4.8 - 10.8 X10*3/uL [facility] Red Blood Count 4.62 4.20 - 5.50 X10*6/uL [facility] Hemoglobin 12.6 12.0 - 16.0 g/dl [facility] Hematocrit 39.4 37.0 - 47.0 % [facility] Mean Corpuscular Volume 85.3 80.0 - 98.0 fL [facility] Mean Corpuscular Hemoglobin 27.3 27.0 - 33.0 pg [facility] Mean Corpuscular HGB Conc 32.0 31.0 - 35.0 g/dl [facility] Red Cell Distribution Width 14.9 11.0 - 16.0 % [facility] Platelet Count 264 160 - 400 X10*3/uL [facility] Mean Platelet Volume 11.0 9.4 - 12.3 fL [facility] Neutrophils Percent Auto 60.2 45 - 73 % [facility] Imm Gran Pct Auto 0.2 0.0 - 0.4 % [facility] Lymphocytes Percent Auto 30.8 20 - 40 % [facility] Monocytes Percent Auto 6.7 2 - 11 % [facility] Eosinophils Percent Auto 1.6 0 - 4 % [facility] Basophils Percent Auto 0.5 0 - 2 % [facility] NRBC Pct Auto 0.0 0.0 - 0.2 /100WBC [facility] Neutrophils Absolute Auto 5.3 2.0 - 8.3 x10*3/uL [facility] Imm Gran Abs Auto 0.02 0.00 - 0.03 X10*3/uL [facility] Lymphocytes Absolute Auto 2.7 1.2 - 4.9 X10*3/uL [facility] Monocytes Absolute Auto 0.6 0.1 - 1.2 X10*3/uL [facility] Eosinophils Absolute Auto 0.1 0.0 - 0.4 X10*3/uL [facility] Basophils Absolute Auto 0.0 0.0 - 0.2 X10*3/uL [facility] NRBC Abs Auto 0.000 0.0 - 0.012 X10*3/uL [facility] Blood Venous blood specimen / Unknown 08/06/2024 4:53 PM EST 08/06/2024 5:40 PM EST us Maya Whiteside FIELD MECHANICAL METER TESTER LAB BLOOD ORDERABLES Final Resul t [facility] [address] [place] [address] [phone] * Sed Rate by Modified Rachelle (08/06/2024 4:53 PM EST) Erythrocyte Sedimentation Rate 9 0 - 20 MM/HR [facility] Comment:Patients with polycy themia and many hemoglobin abnormalitiesmay have depressed sed rates whereas patients with anemiamay have elevated sed rates. Blood Venous blood specimen / Unknown 08/06/2024 4:53 PM EST 08/06/2024 5:40 PM EST Maya Whiteside FIELD MECHANICAL METER TESTER LAB BLOOD ORDERABLES Final Resul t Performing Organization Address [facility]/ZIP Co de Phone Number [facility] [address] [place] [phone] * (ABNORMAL) C-reactive Protein (08/06/2024 4:53 PM EST) C Reactive Protein 0.63(H) < or = 0.50 mg/dL [facility] Blood Venous blood specimen / Unknown 08/06/2024 4:53 PM EST 08/06/2024 5:40 PM EST Maya Whiteside FIELD MECHANICAL METER TESTER LAB BLOOD ORDERABLES Final Resul t Performing Organization Address City/[facility] Co de Phone Number [facility] [address] [place] [phone] * Hemoglobin A1c (08/06/2024 4:53 PM EST) Hemoglobin A1c 5.7 <6.0 % [facility] Comment:Hemoglobin A1C Refer ence Range Adults: 4.8 - 6.0 % Non diabetic: < 6.0 % Goal: < 7.0 %Additional Action Suggested: > 8.0 %Note: Hemoglobin A1c results are invalid for patients with abnormal amounts of HbF. Blood transfusions may impact the HbA1c concentration in the patient sample. Estimated Average Glucose 117 mg/dL [facility] Comment:eAG = Estimated ave rage glucose which is %A1C expressed asaverage glucose, using the formula of the M5P-PpyasbfKoadmvr Glucose study (ADAG), Diabetes Care, Vol.31,#8,2007 Blood Venous blood specimen / Unknown 08/06/2024 4:53 PM EST 08/06/2024 5:40 PM EST us Maya Whiteside FIELD MECHANICAL METER TESTER LAB BLOOD ORDERABLES Final Resul t [facility] [address] [place] [address] [phone] * Comprehensive Metabolic Panel (08/06/2024 4:53 PM EST) Sodium 138 135 - 145 mmol/L [facility] Potassium 3.6 3.3 - 5.1 mmol/L [facility] Chloride 106 96 - 108 mmol/L [facility] Carbon Dioxide 24 22 - 29 mmol/L [facility] Anion Gap 12 12 - 20 [facility] Urea Nitrogen (BUN) 16 9 - 16 mg/dL [facility] Creatinine, Serum 0.76 0.5 - 1.4 mg/dL [facility] Estimated Glomerular Filt Rate >60 [facility] Comment:Chronic Kidney Disea se: Estimated GFR < 60 mL/min/[id number] Kidney Disease: Estimated GFR < 15 mL/min/1.73m2 Glucose 88 60 - 115 mg/dL [facility] Calcium 8.9 8.4 - 10.2 mg/dL [facility] Bilirubin, Total 0.2 0.0 - 1.0 mg/dL [facility] Aspartate Amino Transferase 19 5 - 31 U/L [facility] Alanine Aminotransferase 27 0 - 31 U/L [facility] Total Protein 6.6 6.5 - 8.0 g/dL [facility] Albumin Level 3.8 3.5 - 5.0 g/dL [facility] Alkaline Phosphatase 64 39 - 117 U/L [facility] Blood Venous blood specimen / Unknown 08/06/2024 4:53 PM EST 08/06/2024 5:40 PM EST us Maya Whiteside FIELD MECHANICAL METER TESTER LAB BLOOD ORDERABLES Final Resul t [facility] [address] [place] [phone] * Cologuard?? colon cancer screening (10/24/2023 9:45 AM EST) [facility] Signature Cologuard Result Negative Negative 11/04/19 5:40 PM EST [facility] (CLIA #:[id number]) Comment: NEGATIVE TEST RESULT. A negative Cologuard result indicates a low likelihood that a colorectal cancer (CRC) or advanced adenoma (adenomatous polyps with more advanced pre-malignant features) ??is present. The chance that a person with a negative Cologuard test has a colorectal cancer is less than 1 in 1500 (negative predictive value >99.9%) or has an ??advanced adenoma is less than ??5.3% (negative predictive value 94.7%). These data are based on a prospective cross-sectional study of 10,000 individuals at average risk for colorectal cancer who were screened with both Cologuard and colonoscopy. (Kehinde Henderson et al, N Engl J Med 2014;370(14):1286- 1297) The normal value (reference range) for this assay is negative. COLOGUARD RE-SCREENING RECOMMENDATION: Periodic colorectal cancer screening is an important part of preventive healthcare for asymptomatic individuals at average risk for colorectal cancer. ??Following a negative Cologuard result, the [place] [employer] and U.S. Multi-Society Task Force screening guidelines recommend a Cologuard re-screening interval of 3 years. References: [place] [employer] Guideline for Colorectal Cancer Screening: https://www.cancer.org/cancer/cjrmx-opbsdq-jlibwu/ramjlmwkc-hldqxfnzp-xvmhsvf/ac s-rec ommendations.html.; Abhi ALVAREZ, Jenae CR, Claudia HiltonK, Colorectal Cancer Screening: Recommendations for Physicians and Patients from the U.S. Multi-Society Task Force on Colorectal Cancer Screening , Am J Gastroenterology 2017; 112:5177-3335. TEST DESCRIPTION: Composite algorithmic analysis of stool DNA-biomarkers with hemoglobin immunoassay. ?? Quantitative values of individual biomarkers are not reportable and are not associated with individual biomarker result reference ranges. Cologuard is intended for colorectal cancer screening of adults of either sex, 45 years or older, who are at average-risk for colorectal cancer (CRC). Cologuard has been approved for use by the U.S. FDA. The performance of Cologuard was established in a cross sectional study of average-risk adults aged 50-84. Cologuard performance in patients ages 45 to 49 years was estimated by sub-group analysis of near-age groups. Colonoscopies performed for a positive result may find as the most clinically significant lesion: colorectal cancer [4.0%], advanced adenoma (including sessile serrated polyps greater than or equal to 1cm diameter) [20%] or non- advanced adenoma [31%]; or no colorectal neoplasia [45%]. These estimates are derived from a prospective cross-sectional screening study of 10,000 individuals at average risk for colorectal cancer who were screened with both Cologuard and colonoscopy. (Kehinde Henderson et al, N Engl J Med 2014;370(14):1091-9937.) Cologuard may produce a false negative or false positive result (no colorectal cancer or precancerous polyp present at colonoscopy follow up). A negative Cologuard test result does not guarantee the absence of CRC or advanced adenoma (pre-cancer). The current Cologuard screening interval is every 3 years. ([place] [employer] and U.S. Multi-Society Task Force). Cologuard performance data in a 10,000 patient pivotal study using colonoscopy as the reference method can be accessed at the following location: www.[employer]ogiPlay/results. Additional description of the Cologuard test process, warnings and precautions can be found at www.[employer]Matter.iord.com. Stool specimen (specimen) 10/24/2023 9:45 AM EST 10/26/2023 2:06 PM EST us Maya Whiteside NP LAB MOLECULAR DIAGNOSTICS ORDERA BLES Final Result [facility] (CLIA #:[id number]) [address] [place] [address], * (ABNORMAL) Lipid Panel, Standard (10/18/2023 12:33 PM EST) Triglycerides 158(H) <150 mg/dL [facility] Comment:Desirable Triglyceri de: less than 150 mg/dLBorderline High Triglyceride 150-199 mg/dLHigh Triglyceride: 200-499 mg/dLVery High Triglyceride: greater than or equal to 5OO mg/dL Cholesterol 225(H) <200 mg/dL [facility] Comment:Desirable Cholestero l: less than 200 mg/dLBorderline High Cholesterol: 200-239 mg/dLHigh Cholesterol: greater than 239 mg/dL LDL Cholesterol Calculated 135(H) <100 mg/dL [facility] Comment:Desirable LDL: less than 100 mg/dLNear Optimal/Above Optimal LDL: 110- 129 mg/dLBorderline High LDL: 130-159 mg/dLHigh LDL: 160-189 mg/dLVery High LDL: greater than or equal to 190 mg/dL HDL Cholesterol 59 >40 mg/dL [facility] Comment:Desirable HDL: great er than 40 mg/dL Note: This HDL assay may give artificially low results in patients with liver disease. Blood Venous blood specimen / Unknown 10/18/2023 12:33 PM EST 10/18/2023 1:12 PM EST us Maya Whiteside NP LAB BLOOD ORDERABLES Final Resul t [facility] [address] [place], [place] [phone] * HIV-1 RNA, Quantitative, Real-Time PCR with Reflex to Genotype (RTI, PI, [facility]) (12/01/2022 3:52 PM EDT) Pathologist [facility] [place] HIV 1 RNA, QN PCR NOT DETECTED copies/mL [facility], HIV 1 RNA, QN PCR NOT DETECTED Log copies/mL [facility], Comment: REFERENCE RANGE: NOT DETECTED copies/mL ?NOT DETECTED ??Log copies/mL This test was performed using Real-Time Polymerase Chain Reaction. Reportable range is 20 to 10,000,000 copies/mL (1.30-7.00 Log copies/mL). 12/01/2022 3:52 PM EDT 12/01/2022 3:53 PM EDT Narrative [facility] - 12/04/2022 12:26 AM EDT FASTING:NO FASTING: NO us Marianna He MARKET REPORTER LAB BLOOD ORDERABLES Final Resu lt DUANE [address] [facility], [facility], [place] [address] [employer], [address] [place] [phone] * (ABNORMAL) Hepatitis Panel, General (12/01/2022 3:52 PM EDT) Hepatitis A Antibody Total REACTIVE( A) NON-REACT RENNY [employer] [place] [employer] Comment: For additional information, please refer to http://DoubleBeam.I-Stand/faq/DIE431 (This link is being provided for informational/ educational purposes only.) Hepatitis B Surface Antibody QL NON-REACT RENNY NON-REACT RENNY [employer] [place] [employer] Hepatitis B Surface Ag NON-REACT RENNY NON-REACT RENNY [employer] [place] [employer] Hepatitis B Core Antibody Total NON-REACT RENNY NON-REACT RENNY [employer] [facility] Hepatitis C Antibody NON-REACT RENNY NON-REACT RENNY [employer] [place] [employer] Index 0.02 <1.00 [employer] [place] [employer] Comment: HCV antibody was non-reactive. There is no laboratory evidence of HCV infection. In most cases, no further action is required. However, if recent HCV exposure is suspected, a test for HCV RNA (test code 60402) is suggested. For additional information please refer to http://DoubleBeam.I-Stand/faq/FKG27d0 (This link is being provided for informational/ educational purposes only.) 12/01/2022 3:52 PM EDT 12/01/2022 3:53 PM EDT Narrative [facility] - 12/04/2022 12:26 AM EDT FASTING:NO FASTING: NO Marianna Ying MARKET REPORTER LAB BLOOD ORDERABLES Final Resu lt [facility] [address] [facility], [facility], [place] [address] [facility] [place] [facility] [address] [place] [address] from Last 3 Months or Most Recently Relevant to Health Maintenance Insurance [facility] HSN FULL Care Teams Screen Printing Machine Operator Helper Relationship Specialty Start Date End Date Maya Whiteside NP [address] [place] [address] PCP - General Family Medicine 05/11/24
[2024-10-26 15:14] LABS: TS Negative Control Passed; TS Panel A 1; TS Panel B 0; TS Positive Control Passed; TSpotTB Negative (Negative)
== END 2024-10-23 15:15 | disposition home or self-care (01) ==
LOC: HO.HHCL 15:14
PROVIDERS: Visit Provider Internal Medicine
DX: Z11.9 Encounter for screening for infectious and parasitic diseases, unspecified (principal)
CPT/HCPCS: 36415; 86481

== ENCOUNTER 2024-11-08 18:15 | Outpatient (REF) | payer MEDICAID, OTHER, SELFPAY ==
--- OUTSIDE RECORDS SUMMARY | 2024-11-08 19:48 | XMS_ITS | Encounter Summary ---
Author Organization [facility] Address [address] [facility] 7t [place] [address] Care Team Providers Care Clinical Psychologist Private Practice Name Role Phone Marianna HeP Primary Care Provider [phone] Maya Whiteside NP Primary Care Provider [phone] Encounter Details Date Type Department Care Team (Late st Contact Info) Description 04/11/2023 Orders Only [facility] [address] [place] [address] Marianna He FNP [address] [place] [address] Pelvic pain (Primary Dx) Social History Tobacco [...] Description 11/19/2024 3:45 PM EDT Office Visit [facility] [address] [place] [phone] Maya Whiteside NP [address] [place] [address] 11/20/2024 4:00 PM EDT Immunization [facility] [address] [place] [address] documented as of this encounter Visit Diagnoses Diagnosis Pelvic pain- Primary documented in this encounter Additional Health Concerns Assessment Noted Time PHQ-9 Depression Total Score: 8 12/02/19 23 2:51 PM EDT documented as of this encounter Care Teams Clinical Psychologist Private Practice Relationship Specialty Start Date End Date Marianna He FNP [address] [place] [address] PCP - General Family Medicine 12/01/22 05/10/24 Maya Whiteside NP [address] [place] [address] PCP - General Family Medicine 05/11/24 documented as of this encounter
--- OUTSIDE RECORDS SUMMARY | 2024-11-08 19:48 | XMS_ITS | Encounter Summary ---
Author Organization [employer] Address [address] [facility] 7t [place] [address] Care Team Providers Care Warehouse Incentive Selector Name Role Phone Marianna He Primary Care Provider [phone] Maya Whiteside NP Primary Care Provider [phone] Reason for Visit * Reason Onset Date Comments Med Refill 11/24/2023 Encounter Details Date Type Department Care Team (Late st Contact Info) Description 11/24/2023 Telephone [facility] [address] [place], [place] [phone] Marianna He FNP [address] [place], [place] [phone] Med Refill Social History Tobacco Use Types [...] 1:08 PM EDT Lisinopril was sent to [facility] on 10/18/23 #90 with 1 refill other medication pended to PCP. * Telephone Encounter - Cruzito Carranza - 11/24/2023 12:35 PM EDT TC from pt requesting medication refill. Medications needing refill: levothyroxine (Synthroid, Levoxyl) 175 MCG tablet and lisinopril (Prinivil) 20 MG tablet To be sent to: [facility] documented in this encounter Plan of Treatment Upcoming Encounters Date Type Department Care Team (Late st Contact Info) Description 11/19/2024 3:45 PM EDT Office Visit [facility] [address] [place] [phone] Maya Whiteside NP [address] [place] [address] 11/20/2024 4:00 PM EDT Immunization [facility] [address] [place], [place] [phone] documented as of this encounter Visit Diagnoses Not on filedocumented in this encounter Additional Health Concerns Assessment Noted Time PHQ-9 Depression Total Score: 8 12/02/19 23 2:51 PM EDT documented as of this encounter Care Teams Warehouse Incentive Selector Relationship Specialty Start Date End Date Marianna He FNP [address] [place] [address] PCP - General Family Medicine 12/01/22 05/10/24 Maya Whiteside NP [address] [place] [address] PCP - General Family Medicine 05/11/24 documented as of this encounter
--- OUTSIDE RECORDS SUMMARY | 2024-11-08 19:48 | XMS_ITS | Encounter Summary ---
Author Organization [facility] [employer] Address [address] [facility] 7t [place] [address] Care Team Providers Care Pricing Consultant Name Role Phone Maya Whiteside NP Primary Care Provider [phone] Reason for Visit * Reason Onset Date Comments Nurse Triage 08/29/2024 Encounter Details Date Type Department Care Team (Late st Contact Info) Description 08/29/2024 Telephone [facility] [address] [place] [address] Maya Whiteside NP [address] [place] [address] Nurse Triage Social History Tobacco Use Types [...] 08/29/2024 2:18 PM EST Triage call with [facility] [phone]. Pt reports increased anxiety since difficulty with [...] become worse * Telephone Encounter - Cruzito Dillon - 08/29/2024 12:48 PM EST Symptom: Anxiety or Panic Attack Outcome: Schedule an urgent appointment (within 4 hours) or talk to a nurse or provider soon Reason: Anxiety keeps from normal daily activities (such as school or work) Mohawk Speaker (Accepted Ancillary Services Manager Therapy) documented in this encounter Plan of Treatment Upcoming Encounters Date Type Department Care Team (Late st Contact Info) Description 11/19/2024 3:45 PM EDT Office Visit [facility] [address] [place] [phone] Maya Whiteside NP [address] [place] [address] 11/20/2024 4:00 PM EDT Immunization [facility] [address] [place] [phone] documented as of this encounter Visit Diagnoses Not on filedocumented in this encounter Additional Health Concerns Assessment Noted Time PHQ-9 Depression Total Score: 1 08/06/20 24 3:56 PM EST documented as of this encounter Care Teams Pricing Consultant Relationship Specialty Start Date End Date Maya Whiteside NP [address] [place] [address] PCP - General Family Medicine 05/11/24 documented as of this encounter
--- OUTSIDE RECORDS SUMMARY | 2024-11-08 19:48 | XMS_ITS | Encounter Summary ---
Author Organization [employer] Address [address] [facility] 7t [place] [address] Care Team Providers Care Production Line Solderer Name Role Phone Maya Whiteside NP Primary Care Provider Encounter Details Date Type Department Care Team [...] 11/19/2024 3:45 PM EDT Office Visit [facility] [address] [place] [phone] Maya Whiteside NP [address] [place] [phone] 11/20/2024 4:[address] [facility] [address] [place] [address] documented as of this encounter Visit Diagnoses Not on filedocumented in this encounter Additional Health Concerns Assessment Noted Time PHQ-9 Depression Total Score: 1 08/06/20 24 3:56 PM EST documented as of this encounter Care Teams Production Line Solderer Relationship Specialty Start Date End Date Maya Whiteside NP [address] [place] [phone] PCP - General Family Medicine 05/11/24 documented as of this encounter
--- OUTSIDE RECORDS SUMMARY | 2024-11-08 19:48 | XMS_ITS | Encounter Summary ---
Author Organization [facility] Address [address] [facility] 7t [place] [address] Care Team Providers Care Roller Mill Operator Name Role Phone Ying Marianna FNP Primary Care Provider [phone] Maya Whiteside NP Primary Care Provider [phone] Encounter Details Date Type Department Care Team (Late Contact Info) Description 10/26/2022 Orders Only [facility] [address] [place] [phone] Lynn Gaxiola FNP Acquired hypothyroidism Social History [...] Encounters Date Type Department Care Team (Late Contact Info) Description 11/19/2024 3:45 PM EDT Office Visit [facility] [address] [place] [address] [phone] Maya Whiteside, BEATRIZ [address] [place], [place] [phone] 11/20/2024 4:00 PM EDT Immunization [facility] [address] [place] [address] documented as of this encounter Procedures Procedure Name Priority Date/Time Associated Diagnosis Comments TSH W/REFLEX TO FT4 Routine 11/29/2022 8:52 AM EDT Acquired hypothyroidism documented in this encounter Results * TSH W/Reflex to FT4 (11/29/2022 8:52 AM EDT) TSH w/Reflex to FT4 3.96 mIU/L [facility] Comment: ?Reference Range ?> or = 20 Years ??0.40-4.50 ? Ranges ?First trimester ?0.26-2.66 ?Second trimester ?? 0.55-2.73 ?Third trimester ?0.43-2.91 11/29/2022 8:52 AM EDT 11/29/2022 8:52 AM EDT Narrative [facility] - 11/29/2022 8:54 PM EDT FASTING:UNKNOWN FASTING: UNKNOWN us Lynn Gaxiola [facility] LAB BLOOD ORDERABLES Final Res ult [facility] [address], [place] [address] [facility] [address] [place] [address] documented in this encounter Visit Diagnoses Diagnosis Acquired hypothyroidism Unspecified hypothyroidism documented in this encounter Care Teams Roller Mill Operator Relationship Specialty Start Date End Date Marianna He FNP [address] [place] [address] PCP - General Family Medicine 12/01/22 05/10/24 Maya Whiteside NP [address] [place] [address] PCP - General Family Medicine 05/11/24 documented as of this encounter
--- OUTSIDE RECORDS SUMMARY | 2024-11-08 19:48 | XMS_ITS | Clinical Summary ---
Author Organization [employer] Address [address] [facility] 7t [place] [address] Care Team Providers Care Photographs Curator Name Role Phone Maya Whiteside NP Primary Care Provider [phone] Allergies No known active allergies Medications Blood [...] DAY 30 tablet 2 10/15/19 25 Active ibuprofen 600 MG tablet Take 1 tablet (600 mg) by mouth every 6 (six) hours if needed for mild pain. 40 tablet 1 11/08/19 25 026 Active acetaminophen (Tylenol 8 Hour) 650 MG ER tablet Take 1 tablet (650 mg) by mouth every 8 (eight) hours if needed for mild pain. Do not crush, chew, or split. 40 tablet 1 11/08/19 25 025 Active sulfamethoxazole- trimethoprim (Bactrim DS) 800-160 MG tablet Take 1 tablet by mouth 2 times daily for 3 days. 6 tablet 11/08/19 25 025 Active escitalopram (Lexapro) 10 MG tabletIndications :Anxiety [...] or greater 10/18/2023 Encounter for health-related screening Hypersomnia 10/18/2023 Assessment & Plan (09/01/2024 2:56 [...] Encounters Date Type Department Care Team Description 11/08/2024 2:00 PM EST Office Visit [facility] [address] [address] Tonia Scott DO Acute UTI (Primary Dx) 11/08/2024 Telephone [facility] [address] [place] [address] Charissa Oneil MA Chart Prep 11/08/2024 Telephone [facility] [address] [place] [address] Maya Whiteside NP nurse triage 10/23/2024 3:45 PM EST Immunization [facility] [address] [place] [address] Rehana Adorno LPN Encounter for immunization (Primary Dx) 10/23/2024 Travel 10/14/2024 Refill [facility] [address] [place] [address] Marianna He FNP Anxiety 10/10/2024 Travel 09/21/2024 Refill [facility] [address] [place] [address] Marianna He FNP 09/18/2024 Telephone [facility] [address] [place] [address] Tami Yanes MA Recall 09/10/2024 Telephone [facility] [address] [place] [address] Maya Whiteside NP No Show 09/07/2024 Telephone [facility] [address] [place] [address] Charissa Oneil MA Chart Prep 08/29/2024 Telephone [facility] [address] [place] [address] Maya Whiteside NP Nurse Triage 08/23/2024 Telephone [facility] [address] [place] [address] Maya Whiteside NP Results from Last 3 Months Immunizations Name Administration Dates Next Due Hep B, adult 10/23/2024 IPV 10/29/2024 Influenza, seasonal, injectable, preservative fr ee 08/06/2024 MMR 10/23/2024 Moderna Covid-19 Vaccine 12+ 03/17/2021,02/17/20 21 Tdap 10/23/2024 Family History Medical History Relation Name Comments [...] is your housing situation today? I have edgarfloridalma martinez 03/07/[address] you [...] Sign Reading Time Taken Comments Blood Pressure 155/79 11/08/2024 1:49 PM EST Pulse 80 11/08/2024 1:49 PM EST Temperature 36.8 ??C (98.3 ??F) 11/08/2024 1:49 PM ES T Respiratory Rate 18 11/08/2024 1:49 PM EST Oxygen Saturation 98% 11/08/2024 1:49 PM EST Inhaled Oxygen Concentration - - Weight 121 kg (266 lb 12.8 oz) 08/06/2024 3:41 P M EST Height 162.6 cm (5' 4 ) 08/06/2024 3:41 PM EST Body Mass Index 45.8 08/06/2024 3:41 PM EST Plan of Treatment Upcoming Encounters Date Type Department Care Team (Late st Contact Info) Description 11/19/2024 3:45 PM EDT Office Visit [facility] [address] [place] [address] Maya Whiteside NP [address] [place] [address] 11/20/2024 4:00 PM EDT Immunization [facility] [address] [place] [address] Health Maintenance Due Date Last Done Comments CT Colonography 1978 Colonoscopy 1978 FIT 1978 FOBT 1978 Sigmoidoscopy 1978 Family Planning (PISQ) 1993 Pap Smear 1999 Cervical Cancer Screening 02/22/2008 HPV/Cotest 02/22/2008 COVID-19 Vaccine ( season) 2024 03/17/2021, 02/16/2021 Hepatitis B Vaccines (2 of 3 - 19+ 3-dose series) 11/20/2024 10/23/2024 IPV Vaccines (2 of 3 - Adult catch-up series) 11/26/2024 10/29/2024 SDOH Screening 03/07/2025 03/07/2024 Alcohol/Substance Use Screening 08/06/2025 08/06/2024 Depression Screening 08/06/2025 08/06/2024, 08/06/20 24 Diabetes: Hemoglobin A1C 08/06/2025 024, 10/18/2023, 12/01/2022, Additional history exists Tobacco Screening 11/08/2025 11/08/2024 Mammogram 09/17/2026 09/17/2024 Colorectal Cancer Screening 10/24/2026 FIT DNA/Cologuard 10/24/2026 10/24/2023 Zoster Vaccines (1 of 2) 02/22/2028 Lipid Panel 10/18/2028 10/18/2023, 11/11, 01/25/2022 DTaP/Tdap/Td Vaccines (2 - Td or Tdap) 10/23/2034 10/23/2024 RSV Patients and Patients Aged 60 years [...] Procedure Name Priority Date/Time Associated Diagnosis Comments POCT URINALYSIS DIPSTICK Routine 11/08/2024 2:27 PM EST Acute UTI BI MAMMOGRAM SCREENING TOMOSYNTHESIS BILATERAL Routine 09/17/2024 4:38 PM EST Breast screening HEMOGLOBIN A1C Routine 08/06/2024 4:53 PM EST [...] Recently Relevant to Health Maintenance Results * (ABNORMAL) POCT urinalysis dipstick manually resulted (11/08/2024 2:27 PM EST) Color, UA Yellow Clarity, UA Clear Glucose, UA Negative Bilirubin, UA Few 15 Comment:small Ketones, UA Positive Comment:trace Spec Grav, UA 1.025 Blood, UA Positive(A) Negative, None Detected Comment:moderate pH, UA 6.5 Protein, UA Few 15 Comment:100 mg/dL Urobilinogen, UA 1.0 Leukocytes, UA Moderate(A) Negative, Rare, Trace Nitrite, UA Negative Negative, None Detected Urine 11/08/2024 2:27 PM EST Tonia Scott DO POINT OF CARE TEST ENTER/DANTE T ORDERABLES Final Result * BI Mammogram Screening Tomosynthesis Bilateral (09/17/2024 4:38 PM EST) Anatomical Region Laterality Modality Breast Bilateral Mammography 09/17/2024 4:38 PM EST Narrative 09/23/2024 6:08 PM EST ? [facility] [place] ? [address] [facility] ?[place] [address] ? Mammography Report ? Signed ? Patient: Vanda Alonso,Mikki ?MR# ?? : [id number] ? : 1980 ?Acct:[id number] ? Age/Sex: 44 / F ?ADM Date: 01/06/25 ? Loc: HO.MAMMO ? Attending : Maya Whiteside DUST BOX TENDER ? Ordering Physician: Maya Whiteside DUST BOX TENDER ?Results: 1Negati ?? ve ? Date of Service: 09/17/24 ?Follow Up: 1 Year From Orig ?? inal Mammogram ? Procedure(s): MM tomosynthesis screening BI ?? Accession Number(s): [id number] ? cc: Maya Whiteside DUST BOX TENDER ? EXAMINATION: ?? MM SCREENING DIGITAL BREAST [...] by Andreia Paz, DO in OV> ? 09/23/24 1805 ? DD/ 1638 ? TD/TT: 09/17/24 1648 ? Software Development Advisor: ? Procedure Note Donotuseinterpreter, Image - 09/23/2024 [facility] [address] [place], [place] [address] Mammography Report Signed Patient: Mikki ThomsonMR# : [id number] : 1980Acct:[id number] Age/Sex: 44 / FADM Date: 09/17/24 Loc: HO.MAMMO Attending Dr: Maya Whiteside DUST BOX TENDER Ordering Physician: Maya Whiteside NPResults: 1Negati ve Date of Service: 09/17/24Follow Up: 1 Year From Orig inal Mammogram Procedure(s): MM tomosynthesis screening BI Accession Number(s): [id number] cc: Maya Whiteside DUST BOX TENDER EXAMINATION: MM SCREENING DIGITAL BREAST TOMOSYNTHESIS, BILATERAL [...] by: Andreia Paz DO 09/23/2024 06:05 PM [facility] Dictated By: Andreia Paz DO Signed By: <Electronically signed by Andreia Paz DO in OV> 09/23/24 1806 DD/ 1638 TD/TT: 09/17/24 1648 Software Development Advisor: Maya Whiteside NP IMG BI PROCEDURES Edited Result - Final * Hemoglobin A1c (08/06/2024 4:53 PM EST) [...] patient sample. Estimated Average Glucose 117 mg/dL [facility] Comment:eAG = Estimated ave rage glucose which is %A1C expressed asaverage glucose, using the formula of the Z3X-PoxsbonBqsxrsl Glucose study (ADAG), Diabetes Care, Vol.31,#8,Apr. 2007 Blood Venous blood specimen / Unknown 08/06/2024 4:53 PM EST 08/06/2024 5:40 PM EST Maya Whiteside NP LAB BLOOD ORDERABLES Final Resul t [facility] [address] [place] [address] [phone] * Cologuard?? colon cancer screening (10/24/2023 9:45 AM EST) Cologuard Result Negative Negative 11/04/19 5:40 PM EST [facility] (CLIA #:[id number]) Comment: NEGATIVE TEST RESULT. A negative Cologuard [...] screened with both Cologuard and colonoscopy. (Kehinde Hernandes al, N Engl J Med 2014;370(14):1286- 1297) The normal value (reference range) for this assay is negative. COLOGUARD RE-SCREENING RECOMMENDATION: Periodic colorectal cancer screening is an important part of preventive healthcare for asymptomatic individuals at average risk for colorectal cancer. ??Following a negative Cologuard result, the British Cancer Society and U.S. Multi-Society Task Force screening guidelines recommend a Cologuard re-screening interval of 3 years. References: British Cancer Society Guideline for Colorectal Cancer Screening: https://www.cancer.org/cancer/ifyzc-khigbi-vjwggp/czamokcuu-edlgztlnp-dzzelvs/ac s-rec ommendations.html.; Abhi DK, Jenae ALVAREZ, Claudia HiltonK, Colorectal Cancer Screening: Recommendations for Physicians and Patients from the U.S. Multi-Society Task Force on Colorectal Cancer Screening , Am J Gastroenterology 2017; 112:9894-7975. TEST DESCRIPTION: Composite algorithmic analysis of stool [...] screened with both Cologuard and colonoscopy. (Kehinde Adam, N Engl J Med 2014;370(14):1579-0353.) Cologuard may produce a false negative or false positive result (no colorectal cancer or precancerous polyp present at colonoscopy follow up). A negative Cologuard test result does not guarantee the absence of CRC or advanced adenoma (pre-cancer). The current Cologuard screening interval is every 3 years. (British Cancer Society and U.S. Multi-Society Task Force). Cologuard performance data in a 10,000 patient pivotal study using colonoscopy as the reference method can be accessed at the following location: www.momondo/results. Additional description of the Cologuard test process, warnings and precautions can be found at www.QuantiaMDogAirstonerd.com. Stool specimen (specimen) 10/24/2023 9:45 AM EST 10/26/2023 2:06 PM EST us Maya Whiteside NP LAB MOLECULAR DIAGNOSTICS ORDERA BLES Final Result [facility] (CLIA #:[id number]) [address] [place] [address], * (ABNORMAL) Lipid Panel, Standard (10/18/2023 12:33 PM EST) Triglycerides 158(H) <150 mg/dL [facility] Comment:Desirable Triglyceri de: less than 150 mg/dLBorderline High Triglyceride 150-199 mg/dLHigh Triglyceride: 200-499 mg/dLVery High Triglyceride: greater than or equal to 5OO mg/dL Cholesterol 225(H) <200 mg/dL [facility] Comment:Desirable Cholestero l: less than 200 mg/dLBorderline High Cholesterol: 200-239 mg/dLHigh Cholesterol: greater than 239 mg/dL LDL Cholesterol Calculated 135(H) <100 mg/dL [facility] Comment:Desirable LDL: less than 100 mg/dLNear Optimal/Above Optimal LDL: 110- 129 mg/dLBorderline High LDL: 130-159 mg/dLHigh LDL: 160-189 mg/dLVery High LDL: greater than or equal to 190 mg/dL HDL Cholesterol 59 >40 mg/dL [facility] Comment:Desirable HDL: great er than 40 mg/dL Note: This HDL assay may give artificially low results in patients with liver disease. Blood Venous blood specimen / Unknown 10/18/2023 12:33 PM EST 10/18/2023 1:12 PM EST Maya Barneycassandra DUST BOX TENDER LAB BLOOD ORDERABLES Final Resul t [facility] [address] [place] [phone] * HIV-1 RNA, Quantitative, Real-Time PCR with Reflex to Genotype (RTI, PI, Integrase) (12/01/2022 3:52 PM EDT) Pathologist [facility] HIV 1 RNA, QN PCR NOT DETECTED copies/mL [facility], HIV 1 RNA, QN PCR NOT DETECTED Log copies/mL [facility], Comment: REFERENCE RANGE: NOT DETECTED copies/mL ?NOT DETECTED ??Log copies/mL This test was performed using Real-Time Polymerase Chain Reaction. Reportable range is 20 to 10,000,000 copies/mL (1.30-7.00 Log copies/mL). 12/01/2022 3:52 PM EDT 12/01/2022 3:53 PM EDT Narrative [facility] - 12/04/2022 12:26 AM EDT FASTING:NO FASTING: NO us Marianna He SOLAR SALES CONSULTANT LAB BLOOD ORDERABLES Final Resu lt [facility] [address], [place] [address] [facility], [address] [place] [address] * (ABNORMAL) Hepatitis Panel, General (12/01/2022 3:52 PM EDT) Hepatitis A Antibody Total REACTIVE( A) NON-REACT RENNY [facility] Comment: For additional information, please refer to http://inTarvo.Wordster/faq/BQM128 (This link is being provided for informational/ educational purposes only.) Hepatitis B Surface Antibody QL NON-REACT RENNY NON-REACT RENNY [facility] Hepatitis B Surface Ag NON-REACT RENNY NON-REACT RENNY [facility] Hepatitis B Core Antibody Total NON-REACT RENNY NON-REACT RENNY [facility] Hepatitis C Antibody NON-REACT RENNY NON-REACT RENNY [facility] Index 0.02 <1.00 [facility] [place] [facility] Comment: HCV antibody was non-reactive. There is no laboratory evidence of HCV infection. In most cases, no further action is required. However, if recent HCV exposure is suspected, a test for HCV RNA (test code 75448) is suggested. For additional information please refer to http://EV Connect/faq/JFK29y4 (This link is being provided for informational/ educational purposes only.) 12/01/2022 3:52 PM EDT 12/01/2022 3:53 PM EDT Narrative [facility] - 12/04/2022 12:26 AM EDT FASTING:NO FASTING: NO Marianna He [facility] LAB BLOOD ORDERABLES Final Resu lt [facility] [address], [place] [address] [facility] [place] [facility] [address] [place] [address] from Last 3 Months or Most Recently Relevant to Health Maintenance Insurance [employer] HSN FULL Care Teams Photographs Curator Relationship Specialty Start Date End Date Maya Whiteside NP [address] [place] [address] PCP - General Family Medicine 05/11/24
--- OUTSIDE RECORDS SUMMARY | 2024-11-08 19:48 | XMS_ITS | Encounter Summary ---
Author Organization [employer] Address 75 [facility] 7t [place] [address] Care Team Providers Care Field Health Officer Name Role Phone Marianna He PENSION AGENT Primary Care Provider [phone] Maya Whiteside NP Primary Care Provider [phone] Encounter Details Date Type Department Care Team (Late st Contact Info) Description 12/24/2022 Orders Only [facility] [address] [place] [address] Marianna He FNP [address] [place] [address] Social History Tobacco Use Types Packs/Day Years [...] PM EDT Office Visit [facility] [address] [place] [address] Maya Whiteside NP [address] [place] [address] 11/20/2024 4:00 PM EDT Immunization [facility] [address] [place] [address] documented as of this encounter Visit Diagnoses Not on filedocumented in this encounter Additional Health Concerns Assessment Noted Time PHQ-9 Depression Total Score: 8 12/02/19 23 2:51 PM EDT documented as of this encounter Care Teams Field Health Officer Relationship Specialty Start Date End Date Marianna He FNP [address] [place] [address] PCP - General Family Medicine 12/01/22 05/10/24 Maya Whiteside NP [address] [place] [address] PCP - General Family Medicine 05/11/24 documented as of this encounter
--- OUTSIDE RECORDS SUMMARY | 2024-11-08 19:48 | XMS_ITS | Encounter Summary ---
Author Organization [facility] Address [address] [facility] 7t [place] [address] Care Team Providers Care Traveling Clerk Name Role Phone Marianna HeP Primary Care Provider [phone] Maya Whiteside NP Primary Care Provider [phone] Reason for Visit * Reason Comments Med Refill Encounter Details Date Type Department Care Team (Late st Contact Info) Description 03/08/2023 Refill [facility] [address] [place] [address] Marianna He FNP [address] [place], [place] [phone] Social History Tobacco Use Types Packs/Day Years [...] Description 11/19/2024 3:45 PM EDT Office Visit [facility] [address] [place] [address] Maya Whiteside NP [address] [place] [address] 11/20/2024 4:00 PM EDT Immunization [facility] [address] [place] [address] documented as of this encounter Visit Diagnoses Not on filedocumented in this encounter Additional Health Concerns Assessment Noted Time PHQ-9 Depression Total Score: 8 12/02/19 23 2:51 PM EDT documented as of this encounter Care Teams Traveling Clerk Relationship Specialty Start Date End Date [place] [address] PCP - General Family Medicine 12/01/22 05/10/24 [place] [address] PCP - General Family Medicine 05/11/24 documented as of this encounter
--- OUTSIDE RECORDS SUMMARY | 2024-11-08 19:48 | XMS_ITS | Encounter Summary ---
Author Organization [employer] Address 75 [facility] 7t [place] [address] Care Team Providers Care Cia Agent Name Role Phone Maya Whiteside NP Primary Care Provider Reason for Visit * Reason Onset Date Comments Chart Prep 11/08/2024 Encounter Details Date Type Department Care Team (Late st Contact Info) Description 11/08/2024 Telephone [facility] [address] [place], [place] [phone] Charissa Oneil CO Chart Prep Social History Tobacco Use Types Packs/Day Years [...] encounter Miscellaneous Notes * Telephone Encounter - Charissa Oneil MA - 11/08/2024 4:03 PM EST Chart Prep Labs: done Images: done Vaccines due: Covid, Hep B Referrals: Podiatry Patient declined podiatry appt. Sleep Med canceled, Radiology pending appointment Screenings: Cervical cancer Overdue care gaps: none documented in this encounter Plan of Treatment Upcoming Encounters Date Type Department Care Team (Late st Contact Info) Description 11/19/2024 3:45 PM EDT Office Visit [facility] [address] [place] [address] Maya Whiteside NP [address] [place] [address] 11/20/2024 4:00 PM EDT Immunization [facility] [address] [place] [address] documented as of this encounter Visit Diagnoses Not on filedocumented in this encounter Additional Health Concerns Assessment Noted Time PHQ-9 Depression Total Score: 1 08/06/20 24 3:56 PM EST documented as of this encounter Care Teams Cia Agent Relationship Specialty Start Date End Date Maya Whiteside NP [address] [place] [address] PCP - General Family Medicine 05/11/24 documented as of this encounter
--- OUTSIDE RECORDS SUMMARY | 2024-11-08 19:48 | XMS_ITS | Encounter Summary ---
Author Organization [employer] Address [address] [facility] 7t [place] [address] Care Team Providers Care Transit Department Clerk Name Role Phone Maya Whiteside NP Primary Care Provider [phone] Encounter Details Date Type Department Care Team [...] Description 11/19/2024 3:45 PM EDT Office Visit [facility] [address] [place] [phone] Maya Whiteside NP [address] [place] [address] 11/20/2024 4:00 PM EDT Immunization [facility] [address] [place] [phone] documented as of this encounter Visit Diagnoses Not on filedocumented in this encounter Additional Health Concerns Assessment Noted Time PHQ-9 Depression Total Score: 1 08/06/20 24 3:56 PM EST documented as of this encounter Care Teams Transit Department Clerk Relationship Specialty Start Date End Date Maya Whiteside NP [address] [place] [address] PCP - General Family Medicine 05/11/24 documented as of this encounter
--- OUTSIDE RECORDS SUMMARY | 2024-11-08 19:48 | XMS_ITS | Encounter Summary ---
Author Organization [email or web address] Address 75 [facility] 7t [place] [address] Care Team Providers Care Lunch Counter Manager Name Role Phone Maya Whiteside NP Primary Care Provider [phone] Encounter Details Date Type Department Care Team (Late st Contact Info) Description 10/23/2024 3:45 PM EST Immunization [facility] [address] [place] [address] Rehana Adorno LPN Encounter for immunization (Primary Dx) Social History Tobacco Use Types [...] AM EDT documented as of this encounter Progress Notes * Rehana Adorno LPN - 10/23/2024 3:45 PM EST Subjective Patient ID: Mikki Alonso is a 44 y.o. female who presents Pt here for 1st, of 3 dose series, Engerix, Hepatitis B, Vaccine. Patient history and self attestation indicate no contraindication to vaccination. Pt advised of possible side effects of vaccine including fever, headache and fatigue and advised to stay for 15 minutes monitoring post-vaccine. Pt states understanding and agrees to vaccination. Pt here to receive MMR vaccine. Pt advised that they could experience redness/pain at injection site. Pt educated regarding potential side effects of vaccine including mild rash/fever, swelling of glands in cheeks/neck and joint stiffness. Pt's record and self reporting indicate no contraindication to vaccination. Pt stated understandingand agreed to vaccination. Pt advised to remain for 10-15 minutes observation post vaccination. Pt here for Tdap vaccine. Pt advised that there may be minor redness/swelling/pain at the injectionsite. Pt educated as to potential side effects of Tdap vaccine that could include mild fever/headache/ fatigue/nausea vomiting/ diarrhea/stomachaches. Pt expressed understanding that [facility] recommends remaining 15 minutes post- vaccination for observation. All communication transacted through Nicaraguan interpretor documented in this encounter Plan of Treatment Upcoming Encounters Date Type Department Care Team (Late st Contact Info) Description 11/19/2024 3:45 PM EDT Office Visit [facility] [address] [place] [address] Maya Whiteside NP [address] [place] [address] 11/20/2024 4:00 PM EDT Immunization [facility] [address] [place] [address] documented as of this encounter Visit Diagnoses Diagnosis Encounter for immunization- Primary documented in this encounter Additional Health Concerns Assessment Noted Time PHQ-9 Depression Total Score: 1 08/06/20 24 3:56 PM EST documented as of this encounter Care Teams Lunch Counter Manager Relationship Specialty Start Date End Date Maya Whiteside NP [address] [place] [address] PCP - General Family Medicine 05/11/24 documented as of this encounter
--- OUTSIDE RECORDS SUMMARY | 2024-11-08 19:48 | XMS_ITS | Encounter Summary ---
Author Organization [employer] Address [address] [facility] [address] [place] [address] Care Team Providers Care Desk Editor Name Role Phone Maya Whiteside NP Primary Care Provider [phone] Reason for Visit * Reason Comments uti symptoms Encounter Details Date Type Department Care Team (Late st Contact Info) Description 11/08/2024 2:00 PM EST Office Visit [facility] [address] [place], [place] [phone] Tonia Scott DO [address] [place], [place] [phone] Acute UTI (Primary Dx) Social History Tobacco Use Types [...] AM EDT documented as of this encounter Last Filed Vital Signs Vital Sign Reading Time Taken Comments Blood Pressure 155/79 11/08/2024 1:49 PM EST Pulse 80 11/08/2024 1:49 PM EST Temperature 36.8 ??C (98.3 ??F) 11/08/2024 1:49 PM ES T Respiratory Rate 18 11/08/2024 1:49 PM EST Oxygen Saturation 98% 11/08/2024 1:49 PM EST Inhaled Oxygen Concentration - - Weight - - Height - - Body Mass Index - - documented in this encounter Progress Notes * Tonia Scott, DO - 11/08/2024 2:00 PM EST SUBJECTIVE Mikki Alonso is a 44 y.o. female who presents for Sick Visit. She presents to [place] today c/o acute LBP and UTI sx x 2 days. She says she has been having a lot of LBP and dysuria since yesterday. She feels like she is urinating a normal amount, but she feels like she needs to urinate again soon after voiding. She has urgency sometimes. She denies any hematuria. No urinary frequency. She says she has had 1 UTI in the past. She took some tylenol which helped. History provided by: Patient real estate sales manager used: Yes (Les Bolanos) UTI Severity: Moderate Onset quality: Sudden Duration: 2 days Timing: Constant Progression: Unchanged Chronicity: New Associated symptoms: no abdominal pain, no chest pain, no cough, no diarrhea, no fever, no headaches, no nausea, no rash, no shortness of breath and no vomiting Review of Systems Constitutional: Negative for activity change, appetite change, chills and fever. Respiratory: Negative for cough and shortness of breath. Cardiovascular: Negative for chest pain, palpitations and leg swelling. Gastrointestinal: Negative for abdominal pain, diarrhea, nausea and vomiting. Genitourinary: Positive for dysuria and urgency. Negative for decreased urine volume, difficulty urinating, flank pain, frequency, hematuria, vaginal discharge and vaginal pain. Musculoskeletal: Positive for back pain. Skin: Negative for rash. Neurological: Negative for weakness and headaches. 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 Appearance: Normal appearance. Cardiovascular: Rate and Rhythm: Normal rate and regular rhythm. Heart sounds: Normal heart sounds. No murmur heard. Pulmonary: Effort: Pulmonary effort is normal. Breath sounds: Normal breath sounds. No wheezing or rhonchi. Abdominal: General: Bowel sounds are normal. Palpations: Abdomen is soft. There is no mass. Tenderness: There is no abdominal tenderness. There is no right CVA tenderness or left CVA tenderness. Musculoskeletal: Lumbar back: Tenderness present. No swelling, spasms or bony tenderness. Neurological: General: No focal deficit present. Mental Status: She is alert and oriented to person, place, and time. Cranial Nerves: No cranial nerve deficit. Motor: No weakness. Gait: Gait normal. Psychiatric: Mood and Affect: Mood normal. Assessment/Plan Diagnoses and all orders for this visit: Acute UTI -treat empirically with bactrim -send Ucx for sensitivities -advised contact [facility] if sx do not completely resolve, she agrees with plans --Follow-up with PCP as scheduled or sooner prn-- Current Outpatient Medications: acetaminophen (Tylenol 8 Hour) 650 MG ER tablet, Take 1 tablet (650 mg) by mouth every 8 (eight) hours if needed for mild pain. Do not crush, chew, or split., Disp: 40 tablet, Rfl: 1 Blood Pressure Monitor kit, 1 kit 2 times daily., Disp: 1 kit, Rfl: 0 Blood Pressure Monitoring (Omron 3 Series BP Monitor) device, USE TO CHECK BLOOD PRESSURE TWICE DAILY DIRECTED, Disp: , Rfl: D3 Super Strength 50 MCG (2000 UT) capsule, TAKE 1 CAPSULE BY MOUTH EVERY MORNING, Disp: 90 capsule, Rfl: 2 escitalopram (Lexapro) 10 MG tablet, TAKE 1 TABLET BY MOUTH EVERY DAY, Disp: 30 tablet, Rfl: 2 estradiol (Estrace) 0.1 MG/GM vaginal cream, INSERT 1/2 GRAM VAGINALLY EVERY MORNING DIRECTED, Disp: 42.5 g, Rfl: 0 fluticasone (Flonase) 50 MCG/ACT nasal spray, INSTILL 2 SPRAYS IN EACH NOSTRIL ONCE DAILY, Disp: 48g, Rfl: 0 hydrocortisone 2.5 % cream, Apply pea sized amount to skin bid for 1 week, Disp: 15 g, Rfl: 0 hydrOXYzine pamoate (Vistaril) 25 MG capsule, Take 1 capsule (25 mg) by mouth if needed at bedtime for itching or anxiety for up to 10 days., Disp: 30 capsule, Rfl: 0 ibuprofen 600 MG tablet, Take 1 tablet (600 mg) by mouth every 6 (six) hours if needed for mild pain., Disp: 40 tablet, Rfl: 1 levothyroxine (Synthroid, Levoxyl) 175 MCG tablet, Take 1 tablet (175 mcg) by mouth before breakfast., Disp: 90 tablet, Rfl: 1 lisinopril (Prinivil) 20 MG tablet, Take 1 tablet (20 mg) by mouth in the morning., Disp: 90 tablet, Rfl: 3 omega-3 acid ethyl esters (Lovaza) 1 g capsule, Take 1 capsule (1 g) by mouth in the morning., Disp: 90 capsule, Rfl: 1 omeprazole (PriLOSEC) [address] capsule, TAKE 1 CAPSULE BY MOUTH TWICE DAILY IN THE MORNING AND IN THE EVENING BEFORE MEALS. DO NOT BREAK, CRUSH, DISSOLVE OR CHEW., Disp: 180 capsule, Rfl: 0 sulfamethoxazole-trimethoprim (Bactrim DS) 800-160 MG tablet, Take 1 tablet by mouth 2 times daily for 3 days., Disp: 6 tablet, Rfl: 0 Scribe Attestation: Timmy Samuel, am serving as a scribe to document services personally performed by Tonia Kidd, based on the patient's response to questions by provider and provider's statements to me. 11/08/24 3:07 PM Physicians Attestation: Tonia Samuel DO, have reviewed the information by the scribe, Timmy Torre, for accuracy and agree with its content. documented in this encounter Plan of Treatment Upcoming Encounters Date Type Department Care Team (Late st Contact Info) Description 11/19/2024 3:45 PM EDT Office Visit [facility] [address] [place] [phone] Maya Whiteside NP [address] [place], [place] [phone] 11/20/2024 4:00 PM EDT Immunization [facility] [address] [place] [phone] Scheduled Orders Name Type Priority Associated Diagnoses Orde r Schedule Culture, Urine, Routine Microbiology Routine Acute UTI Ordered: 11/08/2024 documented as of this encounter Procedures Procedure Name Priority Date/Time Associated Diagnosis Comments POCT URINALYSIS DIPSTICK Routine 11/08/2024 2:27 PM EST Acute UTI documented in this encounter Results * (ABNORMAL) POCT urinalysis dipstick manually [...] CARE TEST ENTER/DANTE T ORDERABLES Final Result documented in this encounter Visit Diagnoses Diagnosis Acute UTI- Primary Urinary tract infection, site not specified documented in this encounter Additional Health Concerns Assessment Noted Time PHQ-9 Depression Total Score: 1 08/06/20 3:56 PM EST documented as of this encounter Care Teams Desk Editor Relationship Specialty Start Date End Date Maya Whiteside NP [address] [place] [phone] PCP - General Family Medicine 05/11/24 documented as of this encounter
--- OUTSIDE RECORDS SUMMARY | 2024-11-08 19:48 | XMS_ITS | Encounter Summary ---
Author Organization [employer] Address [address] [facility] [address] [place] [address] Care Team Providers Care Battery Assembler Dry Cell Name Role Phone Maya Whiteside NP Primary Care Provider [phone] Reason for Visit * Reason Onset Date Comments nurse triage 11/08/2024 Encounter Details Date Type Department Care Team (Late st Contact Info) Description 11/08/2024 Telephone [facility] [address] [place] [address] Maya Whiteside NP [address] [place] [address] nurse triage Social History Tobacco Use Types Packs/Day Years [...] encounter Miscellaneous Notes * Telephone Encounter - Kina Guaman RN - 11/08/2024 10:59 AM EST Called pt. Via [phone]. Pt. States that she has been having back pain in lower back and pain with urination x 2 days. No blood, pus, or foul smell. No fever. Protocol Used: Urination Pain - Female (Adult) Protocol-Based Disposition: See in Office or Video Visit Today-Pt will go to [facility] walk in after 130pm. Video visit offer not recorded Positive Triage Question: * Painful urination AND EITHER frequency or urgency * All higher-acuity triage questions were negative Care Advice Discussed: * Drink Extra Fluids * Warm Saline Sitz Baths - Twice Daily for Urination Pain * Telephone Encounter - Spencer Aranda - 11/08/2024 10:46 AM EST Symptom: Back Pain - Not From Injury Outcome: Schedule an urgent appointment (within 1 hour) or talk to a nurse or provider soon Reason: Weakness of the leg The caller accepted this outcome. Serbian speaking documented in this encounter Plan of Treatment Upcoming Encounters Date Type Department Care Team (Late st Contact Info) Description 11/19/2024 3:45 PM EDT Office Visit [facility] [address] [place] [phone] Maya Whiteside NP [address] [place] [address] 11/20/2024 4:00 PM EDT Immunization [facility] [address] [place] [phone] documented as of this encounter Visit Diagnoses Not on filedocumented in this encounter Additional Health Concerns Assessment Noted Time PHQ-9 Depression Total Score: 1 08/06/20 24 3:56 PM EST documented as of this encounter Care Teams Battery Assembler Dry Cell Relationship Specialty Start Date End Date Maya Whiteside NP [address] [place] [address] PCP - General Family Medicine 05/11/24 documented as of this encounter
--- OUTSIDE RECORDS SUMMARY | 2024-11-08 19:48 | XMS_ITS | Encounter Summary ---
Author Organization [employer] Address [address] [facility] 7[address] [place] [address] Care Team Providers Care Senior Editor Name Role Phone JulianneMarianna sol MUTUAL FUND ANALYST Primary Care Provider [phone] Maya Whiteside NP Primary Care Provider [phone] Encounter Details Date Type Department Care Team (Late st Contact Info) Description 02/15/2023 Orders Only [facility] [address] [place] [address] Estephania Baxter MD [address] [place] [address] Acquired hypothyroidism (Primary Dx) Social History Tobacco [...] Description 11/19/2024 3:45 PM EDT Office Visit [facility] [place] [address] Maya Whiteside NP [address] [place] [address] 11/20/2024 4:00 PM EDT Immunization [facility] [place] [address] documented as of this encounter Visit Diagnoses Diagnosis Acquired hypothyroidism- Primary Unspecified hypothyroidism documented in this encounter Additional Health Concerns Assessment Noted Time PHQ-9 Depression Total Score: 8 12/02/19 23 2:51 PM EDT documented as of this encounter Care Teams Senior Editor Relationship Specialty Start Date End Date Marian[place] [address] PCP - General Family Medicine 12/01/22 05/10/24 [place] [address] PCP - General Family Medicine 05/11/24 documented as of this encounter
--- OUTSIDE RECORDS SUMMARY | 2024-11-08 19:48 | XMS_ITS | Encounter Summary ---
Author Organization [employer] Address [address] [facility] 7t [place] [address] Care Team Providers Care Anchorer Name Role Phone Maya Whiteside NP Primary Care Provider [phone] Reason for Visit * Reason Comments Med Refill Encounter Details Date Type Department Care Team (Late st Contact Info) Description 10/14/2024 Refill [facility] [address] [place], [place] [phone] Marianna He FNP [address] [place] [address] Anxiety Social History Tobacco Use Types Packs/Day [...] Description 11/19/2024 3:45 PM EDT Office Visit [facility] [address] [place] [phone] Maya Whiteside NP [address] [place] [phone] 11/20/2024 4:00 PM EDT Immunization [address] [address] documented as of this encounter Visit Diagnoses Diagnosis Anxiety Anxiety state, unspecified documented in this encounter Additional Health Concerns Assessment Noted Time PHQ-9 Depression Total Score: 1 08/06/20 24 3:56 PM EST documented as of this encounter Care Teams Anchorer Relationship Specialty Start Date End Date Maya Whiteside NP [address] [place] [id number] PCP - General Family Medicine 05/11/24 documented as of this encounter
== END 2024-11-08 18:16 | disposition home or self-care (01) ==
LOC: HO.HHCLNP 18:15
PROVIDERS: Visit Provider Family Medicine
DX: N39.0 Urinary tract infection, site not specified (principal)
CPT/HCPCS: 87086

== ENCOUNTER 2025-02-12 14:27 | Emergency (ER) | payer OTHER, SELFPAY ==
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
[2025-02-12 14:35] VITALS: BP 160/78; PULSE 100; O2SAT 97
[2025-02-12 14:39] VITALS: BP 148/85; PULSE 91; RESP 16; TEMP 36.9; O2SAT 94; BMI 30.1
--- NOTE | 2025-02-12 15:46 | PC.NURSE ---
pt family approached nursing station stated we have been here for a half hour, when is she going to get seen? family advised pt awaiting provider black pickler
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
[2025-02-12] MEDS: Cyclobenzaprine HCl 5 MG TABLET PO (16:15)
--- NOTE | 2025-02-12 16:17 | PC.NURSE ---
pt medicated per aMAR- pt to have XR
[2025-02-12 17:36] VITALS: BP 140/75; PULSE 89; RESP 16; TEMP 36.9; O2SAT 94
== END 2025-02-12 17:43 | disposition home or self-care (01) ==
PROVIDERS: Emergency Provider Emergency Medicine Emergency Medical Services
DX: Z04.1 Encounter for examination and observation following transport accident (principal); M25.562 Pain in left knee; M25.561 Pain in right knee; R07.9 Chest pain, unspecified
CPT/HCPCS: 71046; 73564; 99283; 99284

== ENCOUNTER → 2025-02-12 16:00 | Outpatient (BNV) | payer OTHER, SELFPAY | PROVIDERS: Visit Provider Radiology Diagnostic Radiology | DX: R07.9 Chest pain, unspecified (principal); M25.561 Pain in right knee; M25.562 Pain in left knee; V89.2XXA Person injured in unspecified motor-vehicle accident, traffic, initial encounter | CPT/HCPCS: 71046; 73564 ==

== ENCOUNTER 2025-02-14 15:44 | Outpatient (REF) | payer OTHER, SELFPAY ==
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
== END 2025-02-14 15:45 | disposition home or self-care (01) ==
LOC: HO.HHCX 15:44
PROVIDERS: Visit Provider Emergency Medicine
DX: M25.531 Pain in right wrist (principal); V87.7XXD Person injured in collision between other specified motor vehicles (traffic), subsequent encounter
CPT/HCPCS: 73110

== ENCOUNTER → 2025-02-14 15:45 | Outpatient (BNV) | payer MEDICAID, SELFPAY | PROVIDERS: Visit Provider Radiology Diagnostic Radiology | DX: M25.531 Pain in right wrist (principal); V89.2XXA Person injured in unspecified motor-vehicle accident, traffic, initial encounter | CPT/HCPCS: 73110 ==

== ENCOUNTER 2025-03-12 11:12 | Outpatient (REF) | payer MEDICAID, OTHER, SELFPAY | END 2025-03-12 11:13 | disposition home or self-care (01) | LOC: HO.HHCLNP 11:12 | PROVIDERS: Visit Provider Nurse Practitioner Family | DX: R30.0 Dysuria (principal) | CPT/HCPCS: 87086 ==